=== PATIENT | female | born 1935 | race Two or more races ===

== ENCOUNTER 2019-11-19 06:27 | Emergency (ER) | payer MEDICARE, OTHER ==
[~2019-11-19] VITALS: Ht 152.4 cm; Wt 65.0 kg
[2019-11-19 06:27] VITALS: BP 110/72
[~2019-11-19 06:27] MED LIST: ACET325T9 PO; ALBU2.5V5 NEB; ALBU2.5V8 IH; AMLO5TAB10 PO; ATOR10TA60 PO; CARB15DR65 OU; CARV25TA2 PO; CARV3.1230 PO; CELE200C PO; CHLO15MO2 PO; CLON0.5T PO; CYCL1DRO OU; CYCL5TAB PO; DIVA125C2 PO; DOCU-109 PO; ESOM40CA PO; ESTR0.3T PO; FLUT16SP2 NS; FLUV100T2 PO; FLUV150C PO; FLUV50TA2 PO; GUAI-297 PO; HYDR-2765 PO; IBUP200T58 PO; INSU100I17 SQ; IPRA3AMP29 NEB; LATA2.5D2 OU; LEVO75TA5 PO; LIDO700A4 TP; LORA10TA68 PO; LUTE20TA PO; MAG355OR12 PO; MAGN24003 PO; MAGN400O7 PO; MAGN400T5 PO; MEMA10TA PO; MEMA28CA PO; METF500T16 PO; METH29OI TP; MIRA50TA PO; MIRT15TA PO; MIRT7.5T8 PO; MULT-503 PO; MULT-658 PO; OLAN2.5T11 PO; OMEG1CAP32 PO; ONDA-84 PO; OXYC10TA PO; OXYC5TAB4 PO; PANT40TA5 PO; POLY1DRO3 OU; POTA20TA4 PO; PRED-220 PO; PRED5TAB PO; PROP10DR3 OU; QUET100T4 PO; QUET25TA5 PO; REPA0.5T5 PO; RISP0.2519 PO; SODI56GE DT; SODI56GE MM; SUCR1TAB PO; SULF1TAB24 PO; TRAV5DRO OU; TRAZ-120 PO; VENL75TA PO; VIT1CAPS10 PO; VIT1TABL8 PO; mylanta
--- NOTE | 2019-11-19 06:57 | EKG ---
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
--- NOTE | 2019-11-19 07:24 | PHYS DOC ---
Past History Past Medical History: Arthritis, Constipation, Depression, Diabetes, GERD, Hypertension, Other Past Surgical History: Cholecystectomy, , Hysterectomy, Tonsillectomy, Other Smoking: Non-smoker Alcohol Use: None Drug Use: None General Adult EDM: Chief Complaint: MECHANICAL FALL HPI: HPI: Patient is a 84-year-old female who was brought here by EMS from her retirement for evaluation after she passed out while sitting on the toilet. It was reported that patient might have hit her head,, had a seizure, patient has history of seizure disorder on Depakote. EMS were called to take her here for evaluation because patient was acting confused. Upon arrival to ER, patient was awake and alert, she denies any headache, no chest pain, no neck pain, no abdominal pain, no nausea vomiting. The patient denies any cough or fever. There is no report of COVID-19 exposure. Patient was able to ambulate without any problem. Review of Systems: Review of Systems: Constitutional: Denies fever or chills Eyes: Denies change in visual acuity HENT: Denies nasal congestion or sore throat Respiratory: Denies cough or shortness of breath Cardiovascular: Denies chest pain or edema GI: Denies abdominal pain, nausea, vomiting, bloody stools or diarrhea : Denies dysuria Musculoskeletal: Denies back pain or joint pain Integument: Denies rash Neurologic: Denies headache, focal weakness or sensory changes . Positive for generalized weakness Endocrine: Denies polyuria or polydipsia Lymphatic: Denies swollen glands Psychiatric: Denies depression or anxiety Heart Score: Risk Factors: Risk Factors: DM, Current or recent (<one month) smoker, HTN, HLP, family history of CAD, obesity. Risk Scores: Score 0 - 3: 2.5% MACE over next 6 weeks - Discharge Home Score 4 - 6: 20.3% MACE over next 6 weeks - Admit for Clinical Observation Score 7 - 10: 72.7% MACE over next 6 weeks - Early Invasive Strategies Allergies: Allergies: Allergies Coded Allergies Type Severity Reaction Last Updated Verified No Known Drug Allergies 06/24/13 No Physical Exam: PE: Constitutional: Well developed, well nourished, no acute distress, non-toxic appearance. [] HENT: Normocephalic, atraumatic, bilateral external ears normal, oropharynx moist, no oral exudates, nose normal. Facial bones intact, nontender to palpation, no contusion on her head. Eyes: PERRLA, EOMI, conjunctiva normal, no discharge. [] Neck: Normal range of motion, no tenderness, supple, no stridor. [] Cardiovascular:Heart rate regular rhythm, no murmur [] Lungs & Thorax: Bilateral breath sounds clear to auscultation [] Abdomen: Bowel sounds normal, soft, no tenderness, no masses, no pulsatile masses. [] Skin: Warm, dry, no erythema, no rash. [] Back: No tenderness, no CVA tenderness. There is no contusion Extremities: No tenderness, no cyanosis, no clubbing, ROM intact, no edema. No contusion, no pain to palpation along her extremity, no pelvic tenderness to palpation, no hip ,pelvic tender to palpation Neurologic: Alert, oriented to person, normal motor function, normal sensory function, no focal deficits noted. Psychologic: Affect normal, judgement normal, mood normal. [] Current Patient Data: Labs: Laboratory Tests Test 11/19/19 07:33 White Blood Count 11.3 x10^3/uL Red Blood Count 4.67 x10^6/uL Hemoglobin 14.8 g/dL Hematocrit 45.0 % Mean Corpuscular Volume 96 fL Mean Corpuscular Hemoglobin 32 pg Mean Corpuscular Hemoglobin Concent 33 g/dL Red Cell Distribution Width 14.3 % Platelet Count 222 x10^3/uL Neutrophils (%) (Auto) 55 % Lymphocytes (%) (Auto) 32 % Monocytes (%) (Auto) 12 % Eosinophils (%) (Auto) 1 % Basophils (%) (Auto) 1 % Neutrophils # (Auto) 6.2 x10^3uL Lymphocytes # (Auto) 3.6 x10^3/uL Monocytes # (Auto) 1.3 x10^3/uL Eosinophils # (Auto) 0.1 x10^3/uL Basophils # (Auto) 0.1 x10^3/uL Sodium Level 142 mmol/L Potassium Level 3.9 mmol/L Chloride Level 104 mmol/L Carbon Dioxide Level 28 mmol/L Anion Gap 10 Blood Urea Nitrogen 26 mg/dL Creatinine 1.6 mg/dL Estimated GFR (Cockcroft-Gault) 30.9 BUN/Creatinine Ratio 16 Glucose Level 165 mg/dL Calcium Level 9.0 mg/dL Magnesium Level 1.7 mg/dL Total Bilirubin 0.3 mg/dL Aspartate Amino Transf (AST/SGOT) 16 U/L Alanine Aminotransferase (ALT/SGPT) 18 U/L Alkaline Phosphatase 74 U/L Troponin I Quantitative < 0.017 ng/mL Total Protein 7.0 g/dL Albumin 2.9 g/dL Albumin/Globulin Ratio 0.7 Valproic Acid (Depakene) Level mcg/mL Valproic Acid Last Dose Date 11/18/19 Valproic Acid Last Dose Time 1900 Current Medications Medications (Trade) Dose Ordered Sig/Carter Route PRN Reason Start Time Stop Time Status Last Admin Dose Admin Sodium Chloride 500 ml @ 0 mls/hr 1X ONCE IV 11/19/19 08:45 11/19/19 08:46 DC 11/19/19 08:43 Vital Signs: Vital Signs Date Time Temp Pulse Resp B/P (MAP) Pulse Ox O2 Delivery O2 Flow Rate FiO2 11/19/19 06:27 97.9 84 18 110/72 (85) 97 Room Air EKG: EKG: EKG was done at 651, heart rate 82 bpm, normal sinus rhythm, no ST segment elevation. [] Radiology/Procedures: Radiology/Procedures: [][place] [id number] IMAGING REPORT Signed PATIENT: SKINNY JOACCOUNT: [id number] : 1935 LOCATION: ER AGE: 84 SEX: F EXAM STATUS: REG ER ORD. PHYSICIAN: ELLIOT BOYD DO REASON: HAD A SYNCOPE,PASSED OUT,ACTING CONFUSED,ABSCESSED TOOTH ON RT PROCEDURE: CT HEAD AND CERVICAL SPINE WO CT HEAD AND CERVICAL SPINE WO Clinical indications: Reason: HAD A SYNCOPE,PASSED OUT,ACTING CONFUSED,ABSCESSED TOOTH ON RT NONCONTRAST HEAD CT COMPARISON: June 30, 2013. Technique: Noncontrast axial cross sectional scanning of the head was performed. PQRS compliance Statement One or more of the following individualized dose reduction techniques were utilized for this study: 1. Automated exposure control 2. Adjustment of the mA and/or kV according to patient size 3. Use of iterative reconstruction technique Findings: No acute intracranial hemorrhage or midline shift or mass-effect or hydrocephalus or extra-axial fluid collection is seen. 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 Bilateral periventricular white matter hypodensity seen consistent chronic small vessel ischemic disease in this age group. No now focal hypodense area or sulci effacement is seen to indicate an acute infarct or edema radiographically. Generalized cerebral atrophy is seen. No skull fracture or pneumocephalus is seen. There is a moderate-sized air-fluid level within the right sphenoid sinus. The maxillary sinuses are not completely seen in this study. IMPRESSION: No acute intracranial abnormality is seen. Moderate-sized air-fluid level within the right sphenoid sinus. No skull fracture is evident. No pneumocephalus is seen. Therefore, this finding may be secondary to acute sinusitis. CT STUDY CERVICAL SPINE WITHOUT CONTRAST TECHNIQUE: Noncontrast helical CT scanning of the cervical spine was performed. Multiplanar 2-D reconstructions were generated. FINDINGS: No acute fracture or discitis or lytic process is seen. There is grade 1 anterolisthesis of C3-4 and C4-5. Degenerative facet arthropathy is evident. No perching of facet joints is evident. Spinous processes are intact. There is degenerative disc space narrowing and endplate spurring at C4-5 and C5-6. No prevertebral soft tissue swelling is evident. Dental caries is seen involving the upper left tooth and lower right tooth. No periapical lucency or lytic process is seen. No prevertebral soft tissue swelling is evident. Groundglass lung nodule is seen involving the medial aspect left upper lobe measuring 9 mm. IMPRESSION: No acute fracture. Degenerative cervical spondylosis. 9 mm groundglass lung nodule within the left upper lobe. This may be further evaluated with outpatient chest CT. Dental caries. Electronically signed by: Yuliana Johns MD (11/19/2019 7:57 AM) [id number] DICTATED AND SIGNED BY: YULIANA JOHNS MD DATE: 11/19/19 0754 CC: ELLIOT BOYD DO; IKER GARCIA ~ [address] [address] IMAGING REPORT Signed PATIENT: SKNINY JOACCOUNT: [id number] : 1935 LOCATION: ER AGE: 84 SEX: F EXAM STATUS: REG ER ORD. PHYSICIAN: ELLIOT BOYD DO REASON: FELL, BACK PAIN PROCEDURE: LUMBAR SPINE 2-3V Three-view study lumbar spine Clinical indications: Fall. Back pain. FINDINGS: Levoscoliosis is seen. The transverse processes appear intact. No acute compression fracture is evident. No discitis or lytic process or anterolisthesis is evident. Degenerative disc space narrowing and endplate spurring is seen from L2-3 through L4-5. IMPRESSION: No acute fracture is evident. Electronically signed by: Yuliana Johns MD (11/19/2019 7:38 AM) [id number] DICTATED AND SIGNED BY: YULIANA JOHNS MD DATE: 11/19/19737 CC: ELLIOT BOYD DO; IKER GARCIA ~ [place] [address] IMAGING REPORT Signed PATIENT: SKINNY JOACCOUNT: [id number] : 1935 LOCATION: ER AGE: 84 SEX: F EXAM STATUS: REG ER ORD. PHYSICIAN: ELLIOT BOYD DO REASON: FELL, BACK PAIN PROCEDURE: PELVIS AP view of the pelvis Clinical indications: Fall. Back pain. FINDINGS: The hip joints are symmetric. No acute fracture is seen. No diastases of the symphysis pubis or either SI joint is seen. IMPRESSION: No acute fracture. Electronically signed by: Yuliana Johns MD (11/19/2019 7:39 AM) [id number] DICTATED AND SIGNED BY: YULIANA JOHNS MD DATE: 11/19/19738 CC: ELLIOT BOYD DO; IKER GARCIA ~ Course & Med Decision Making: Course & Med Decision Making Pertinent Labs and Imaging studies reviewed. (See chart for details) Patient is a 84-year-old female who was evaluated in the ER today due to syncopal episode while she was sitting on the toilet consistent with vasovagal response. CT scan of the head and C-spine did not show any acute fracture or bleeding. X-ray of the lumbar spine pelvic did not show any acute fracture. Her lab work did not show any significant problem. She was slightly dehydrated, she was given 500 cc of normal saline IV bolus, her EKG did not show any acute problem. Patient will be discharged back to the retirement. Bassem Disclaimer: Bassem Disclaimer: This electronic medical record was generated, in whole or in part, using a voice recognition dictation system. Departure Departure: Impression: Primary Impression: Syncope Disposition: HOME/RESIDENCE PRIOR TO ADM Condition: STABLE Referrals: IKER GARCIA (PCP) please follow up with your doctor next week Patient Instructions: Syncope Additional Instructions: Thank you for visiting our Emergency Department. We appreciate you trusting us with your care. If any additional problems come up don't hesitate to return to visit us. Please follow up with your primary care provider so they can plan additional care if needed and know about the problem that you had. If symptoms worsen come back to the Emergency Department. Any concerning symptoms that start such as chest pain, shortness of air, weakness or numbness on one side of the body, running high fevers or any other concerning symptoms return to the ER. Justification of Admission: Justification of Admission: Justification of Admission Dx: N/A ELLIOT BOYD DO Nov 19, 2019 07:24
--- NOTE | 2019-11-19 07:41 | RAD ---
Three-view study lumbar spine Clinical indications: Fall. Back pain. FINDINGS: Levoscoliosis is seen. The transverse processes appear intact. No acute compression fracture is evident. No discitis or lytic process or anterolisthesis is evident. Degenerative disc space narrowing and endplate spurring is seen from L2-3 through L4-5. IMPRESSION: No acute fracture is evident. Electronically signed by: Jayesh Johns MD (11/19/2019 7:38 AM) [id number]
--- NOTE | 2019-11-19 07:42 | RAD ---
AP view of the pelvis Clinical indications: Fall. Back pain. FINDINGS: The hip joints are symmetric. No acute fracture is seen. No diastases of the symphysis pubis or either SI joint is seen. IMPRESSION: No acute fracture. Electronically signed by: Jayesh Johns MD (11/19/2019 7:39 AM) [id number]
[2019-11-19 07:49] LABS: BASO # 0.1 x10^3/uL (0.0-0.2); BASO % 1 % (0-3); EOS # 0.1 x10^3/uL (0.0-0.7); EOS % 1 % (0-3); HEMOGLOBIN 14.8 g/dL (12.0-15.5); LYMPH # 3.6 x10^3/uL (1.0-4.8); LYMPH % 32 % (24-48); MEAN CORPUSCULAR HEMOGLOBIN 32 pg (25-35); MEAN CORPUSCULAR HGB CONC 33 g/dL (31-37); MEAN CORPUSCULAR VOLUME 96 fL (79-100); MONO # 1.3 x10^3/uL (0.0-1.1); MONO % 12 % (0-9); NEUT # 6.2 x10^3uL (1.8-7.7); NEUT % 55 % (31-73); PLATELET COUNT 222 x10^3/uL (140-400); RED BLOOD COUNT 4.67 x10^6/uL (3.50-5.40); RED CELL DISTRIBUTION WIDTH 14.3 % (11.5-14.5); WHITE BLOOD COUNT 11.3 x10^3/uL (4.0-11.0)
[2019-11-19 07:58] LABS: ANION GAP 10 (6-14); BLOOD UREA NITROGEN 26 mg/dL (7-20); BUN/CREATININE RATIO 16 (6-20); CARBON DIOXIDE 28 mmol/L (21-32); CHLORIDE 104 mmol/L (98-107); CREATININE 1.6 mg/dL (0.6-1.0); GFR 30.9; GLUCOSE 165 mg/dL (70-99); POTASSIUM 3.9 mmol/L (3.5-5.1); SODIUM 142 mmol/L (136-145)
[2019-11-19 08:00] LABS: ALBUMIN 2.9 g/dL (3.4-5.0); MAGNESIUM 1.7 mg/dL (1.8-2.4)
--- NOTE | 2019-11-19 08:00 | RAD ---
CT HEAD AND CERVICAL SPINE WO Clinical indications: Reason: HAD A SYNCOPE,PASSED OUT,ACTING CONFUSED,ABSCESSED TOOTH ON RT NONCONTRAST HEAD CT COMPARISON: June 30, 2013. Technique: Noncontrast axial cross sectional scanning of the head was performed. PQRS compliance Statement One or more of the following individualized dose reduction techniques were utilized for this study: 1. Automated exposure control 2. Adjustment of the mA and/or kV according to patient size 3. Use of iterative reconstruction technique Findings: No acute intracranial hemorrhage or midline shift or mass-effect or hydrocephalus or extra-axial fluid collection is seen. 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 Bilateral periventricular white matter hypodensity seen consistent chronic small vessel ischemic disease in this age group. No now focal hypodense area or sulci effacement is seen to indicate an acute infarct or edema radiographically. Generalized cerebral atrophy is seen. No skull fracture or pneumocephalus is seen. There is a moderate-sized air-fluid level within the right sphenoid sinus. The maxillary sinuses are not completely seen in this study. IMPRESSION: No acute intracranial abnormality is seen. Moderate-sized air-fluid level within the right sphenoid sinus. No skull fracture is evident. No pneumocephalus is seen. Therefore, this finding may be secondary to acute sinusitis. CT STUDY CERVICAL SPINE WITHOUT CONTRAST TECHNIQUE: Noncontrast helical CT scanning of the cervical spine was performed. Multiplanar 2-D reconstructions were generated. FINDINGS: No acute fracture or discitis or lytic process is seen. There is grade 1 anterolisthesis of C3-4 and C4-5. Degenerative facet arthropathy is evident. No perching of facet joints is evident. Spinous processes are intact. There is degenerative disc space narrowing and endplate spurring at C4-5 and C5-6. No prevertebral soft tissue swelling is evident. Dental caries is seen involving the upper left tooth and lower right tooth. No periapical lucency or lytic process is seen. No prevertebral soft tissue swelling is evident. Groundglass lung nodule is seen involving the medial aspect left upper lobe measuring 9 mm. IMPRESSION: No acute fracture. Degenerative cervical spondylosis. 9 mm groundglass lung nodule within the left upper lobe. This may be further evaluated with outpatient chest CT. Dental caries. Electronically signed by: Jayesh Johns MD (11/19/2019 7:57 AM) [id number]
[2019-11-19 08:13] LABS: ALBUMIN/GLOBULIN RATIO 0.7 (1.0-1.7); ALK PHOS 74 U/L (46-116); ALT (SGPT) 18 U/L (14-59); AST (SGOT) 16 U/L (15-37); TOTAL BILIRUBIN 0.3 mg/dL (0.2-1.0)
[2019-11-19] MEDS ORDERED: IV NORMAL SALINE 500ML 500 ML IV ONE (08:45)
== END 2019-11-19 09:42 | disposition home or self-care (01) ==
LOC: ER 06:27
DX: R55 Syncope and collapse (principal); G40.909 Epilepsy, unspecified, not intractable, without status epilepticus; M19.90 Unspecified osteoarthritis, unspecified site; E11.9 Type 2 diabetes mellitus without complications; K21.9 Gastro-esophageal reflux disease without esophagitis; I10 Essential (primary) hypertension
CPT/HCPCS: 36415; 70450; 72100; 72125; 72170; 80053; 80164; 83735; 84484; 85025; 93005; 99285; J7040; 96360

== ENCOUNTER 2021-03-09 18:11 | Emergency (ER) | payer MEDICARE, OTHER ==
[~2021-03-09] VITALS: Ht 162.6 cm; Wt 54.3 kg
[~2021-03-09 18:11] MED LIST changes: +AMLO-186 PO; -AMLO5TAB10 PO; +FLUV100T17 PO; -FLUV100T2 PO; -FLUV50TA2 PO; +FLUV50TA21 PO; +MAGN400T48 PO; -MAGN400T5 PO; +MIRA25TA PO; -MIRA50TA PO; +MIRT-37 PO; -MIRT15TA PO; -PANT40TA5 PO; +PANT40TA6 PO
--- NOTE | 2021-03-09 18:45 | RAD ---
Exam: Chest one view INDICATION: Fall TECHNIQUE: Frontal view of the chest Comparisons: None FINDINGS: The cardiomediastinal silhouette and pulmonary vessels are within normal limits. The lung and pleural spaces are clear. IMPRESSION: No acute cardiopulmonary process. Electronically signed by: Jonathan Marin MD (03/09/2021 6:43 PM) VERENICE
--- NOTE | 2021-03-09 18:55 | EKG ---
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
--- NOTE | 2021-03-09 18:59 | PHYS DOC ---
Past History Additional Past Medical Histor: chronic constipation Past Surgical History: Other General Adult EDM: Chief Complaint: MECHANICAL FALL HPI: HPI: 85-year-old female presents from nursing facility via EMS for fall. The patient was found down on carpeted floor in her room. No witnesses to the fall. Patient was complaining of her legs hurting to staff. When EMS arrived she did not have any specific complaints. The patient has advanced dementia at baseline is only oriented to self. The facility states that she is at her mental baseline. On arrival to the emergency room she has no specific complaints. No reported fever or chills. Review of Systems: Review of Systems: Constitutional: Denies fever or chills HENT: Denies nasal congestion or sore throat Respiratory: Denies cough or shortness of breath Cardiovascular: Denies chest pain or edema GI: Denies abdominal pain, nausea, vomiting, bloody stools or diarrhea : Denies dysuria Musculoskeletal: Denies back pain or joint pain Integument: Denies rash Psychiatric: Denies depression or anxiety Physical Exam: PE: Constitutional: Well developed, well nourished, no acute distress, non-toxic appearance. [] HENT: Normocephalic, atraumatic, bilateral external ears normal, oropharynx moist, no oral exudates, nose normal. [] Eyes: PERRLA, EOMI, conjunctiva normal, no discharge. [] Neck: Normal range of motion, no tenderness, supple, no stridor. [] Cardiovascular: Heart rate 69, regular rhythm, no murmur [] Lungs & Thorax: Bilateral breath sounds clear to auscultation [] Abdomen: Bowel sounds normal, soft, no tenderness, no masses, no pulsatile masses. [] Skin: Warm, dry, no erythema, no rash. [] Back: No tenderness, no CVA tenderness. [] Extremities: No tenderness, no cyanosis, no clubbing, ROM intact, no edema. [] Neurologic: Alert and oriented X 3, normal motor function, normal sensory function, no focal deficits noted. [] Psychologic: Affect normal, judgement normal, mood normal. [] Current Patient Data: Vital Signs: Vital Signs Date Time Temp Pulse Resp B/P (MAP) Pulse Ox O2 Delivery O2 Flow Rate FiO2 03/09/21 18:15 97.9 67 18 136/58 (84) 96 Room Air EKG: EKG: Sinus rhythm, rate 69, leftward axis, no ST elevation or depression. [] Radiology/Procedures: Radiology/Procedures: [] Impressions: Exam: Chest one view INDICATION: Fall TECHNIQUE: Frontal view of the chest Comparisons: None FINDINGS: The cardiomediastinal silhouette and pulmonary vessels are within normal limits. The lung and pleural spaces are clear. IMPRESSION: No acute cardiopulmonary process. Electronically signed by: Jonathan Lomas MD (03/09/2021 6:43 PM) [facility] DICTATED AND SIGNED BY: JONATHAN LOMAS MD DATE: 03/09/211841 CC: MELISSA CANELA DO; IKER GARCIA ~MTH0 0 EXAM: CT HEAD WITHOUT IV CONTRAST CLINICAL HISTORY: Reason: fall / Spl. Instructions: / History: COMPARISON: None. TECHNIQUE: Routine CT of the head without contrast. Soft tissues and bone windows were reviewed. PQRS compliance statement - One or more of the following individualized dose reduction techniques were utilized for this study: 1. Automated exposure control 2. Adjustment of the mA and/or kV according to patient size 3. Use of iterative reconstruction technique FINDINGS: There is no evidence of hemorrhage, mass or extra-axial fluid collection. 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 Subcortical, periventricular as well as deep white matter hypoattenuation likely changes of chronic small vessel disease. There is no mass effect or shift of the intracranial structures. There is prominence of the ventricles and sulci bilaterally consistent with generalized cerebral atrophy. The cerebellum and brainstem are unremarkable. The calvarium demonstrates no evidence of fracture or focal lesion. Opacification sphenoid sinus likely sinusitis. The visualized portions of the orbits are normal. IMPRESSION: 1. No evidence for acute intracranial process. 2. White matter changes likely chronic small vessel disease. 3. There is prominence of the ventricles and sulci bilaterally consistent with generalized cerebral atrophy. 4. 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 EXAM: CT CERVICAL SPINE WITHOUT IV CONTRAST CLINICAL HISTORY: Reason: fall / Spl. Instructions: / History: COMPARISON: None available. TECHNIQUE: Helical CT of the cervical spine was performed. Axial, coronal and sagittal reformatted images were also performed. PQRS compliance statement - One or more of the following individualized dose reduction techniques were utilized for this study: 1. Automated exposure control 2. Adjustment of the mA and/or kV according to patient size 3. Use of iterative reconstruction technique FINDINGS: Vertebral body heights are preserved. No spondylolisthesis. Mild C4-5 and moderate C5-6 disc height loss. Small posterior C4-5 and C5-6 disc osteophyte complexes result in mild central canal stenosis. IMPRESSION: 1. No acute cervical spine fracture or subluxation. 2. Multilevel degenerative changes of the cervical spine are seen. Electronically signed by: Stephen Hansen MD (03/09/2021 7:39 PM) [facility] DICTATED AND SIGNED BY: STEPHEN HANSEN MD DATE: 03/09/211930 CC: MELISSA CANELA DO; IKER GARCIA ~MTH0 0 Heart Score: C/O Chest Pain: N/A Risk Factors: Risk Factors: DM, Current or recent (<one month) smoker, HTN, HLP, family history of CAD, obesity. Risk Scores: Score 0 - 3: 2.5% MACE over next 6 weeks - Discharge Home Score 4 - 6: 20.3% MACE over next 6 weeks - Admit for Clinical Observation Score 7 - 10: 72.7% MACE over next 6 weeks - Early Invasive Strategies Course & Med Decision Making: Course & Med Decision Making Pertinent Labs and Imaging studies reviewed. (See chart for details) The patient did not complain of any areas of pain to me. My exam was essentially benign. Given her dementia, I will CT the head neck. I do not see evidence of necessary imaging for other parts of the body. EKG is negative for acute findings. Patient's chest x-ray is negative for acute findings. The the patient's labs are unremarkable. Patient's CT of the head and cervical spine are negative for acute findings. There are chronic findings. See official read for more details. The patient does not appear to have any acute injuries. She is stable for discharge at this time. [] Dragon Disclaimer: Dragon Disclaimer: This electronic medical record was generated, in whole or in part, using a voice recognition dictation system. Departure Departure: Impression: Primary Impression: Fall Disposition: HOME / SELF CARE / HOMELESS Condition: STABLE Referrals: IKER GARCIA (PCP) Patient Instructions: Fall Prevention and Home Safety, [id number] MELISSA CANELA DO Mar 09, 2021 18:59
[2021-03-09 19:26] LABS: BASO # 0.1 x10^3/uL (0.0-0.2); BASO % 1 % (0-3); EOS # 0.1 x10^3/uL (0.0-0.7); EOS % 1 % (0-3); HEMATOCRIT 44.1 % (36.0-47.0); HEMOGLOBIN 14.5 g/dL (12.0-15.5); LYMPH # 3.2 x10^3/uL (1.0-4.8); LYMPH % 30 % (24-48); MEAN CORPUSCULAR HEMOGLOBIN 32 pg (25-35); MEAN CORPUSCULAR HGB CONC 33 g/dL (31-37); MEAN CORPUSCULAR VOLUME 97 fL (79-100); MONO # 1.1 x10^3/uL (0.0-1.1); MONO % 10 % (0-9); NEUT # 6.4 x10^3uL (1.8-7.7); NEUT % 59 % (31-73); PLATELET COUNT 210 x10^3/uL (140-400); RED BLOOD COUNT 4.53 x10^6/uL (3.50-5.40); RED CELL DISTRIBUTION WIDTH 14.5 % (11.5-14.5); WHITE BLOOD COUNT 10.9 x10^3/uL (4.0-11.0)
--- NOTE | 2021-03-09 19:41 | RAD ---
EXAM: CT HEAD WITHOUT IV CONTRAST CLINICAL HISTORY: Reason: fall / Spl. Instructions: / History: COMPARISON: None. TECHNIQUE: Routine CT of the head without contrast. Soft tissues and bone windows were reviewed. PQRS compliance statement - One or more of the following individualized dose reduction techniques wer e utilized for this study: 1. Automated exposure control 2. Adjustment of the mA and/or kV according to patient size 3. Use of iterative reconstruction technique FINDINGS: There is no evidence of hemorrhage, mass or extra-axial fluid collection. 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 Subcortical, periventricular as well as deep white matter hypoattenuation likely changes of chronic small vessel disease. There is no mass effect or shift of the intracranial structures. There is prominence of the ventricles and sulci bilaterally consistent with generalized cerebral atro phy. The cerebellum and brainstem are unremarkable. The calvarium demonstrates no evidence of fracture or focal lesion. Opacification sphenoid sinus likely sinusitis. The visualized portions of the orbits are normal. IMPRESSION: 1. No evidence for acute intracranial process. 2. White matter changes likely chronic small vessel disease. 3. There is prominence of the ventricles and sulci bilaterally consistent with generalized cerebral atrophy. 4. 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 EXAM: CT CERVICAL SPINE WITHOUT IV CONTRAST CLINICAL HISTORY: Reason: fall / Spl. Instructions: / History: COMPARISON: None available. TECHNIQUE: Helical CT of the cervical spine was performed. Axial, coronal and sagittal reformatted im ages were also performed. PQRS compliance statement - One or more of the following individualized dose reduction techniques wer e utilized for this study: 1. Automated exposure control 2. Adjustment of the mA and/or kV according to patient size 3. Use of iterative reconstruction technique FINDINGS: Vertebral body heights are preserved. No spondylolisthesis. Mild C4-5 and moderate C5-6 disc height loss. Small posterior C4-5 and C5-6 disc osteophyte complexes result in mild central canal stenosis. IMPRESSION: 1. No acute cervical spine fracture or subluxation. 2. Multilevel degenerative changes of the cervical spine are seen. Electronically signed by: Stephen Chang MD (03/09/2021 7:39 PM) [email or web address]
[2021-03-09 19:44] LABS: BILIRUBIN,URINE SMALL (NEG); CLARITY,URINE CLOUDY; COLOR,URINE YELLOW; GLUCOSE,URINE NEG (NEG)
[2021-03-09 19:45] LABS: BACTERIA,URINE MANY /HPF (0-FEW); HYALINE CASTS, URINE FEW /HPF; NITRITE,URINE NEG (NEG); SQUAMOUS EPITHELIAL CELL,UR MOD /LPF
[2021-03-09 19:51] LABS: CALCIUM 9.2 mg/dL (8.5-10.1); CREATININE 1.1 mg/dL (0.6-1.0); GFR 47.4
[2021-03-09 20:05] LABS: ALBUMIN/GLOBULIN RATIO 0.8 (1.0-1.7); TOTAL BILIRUBIN 0.4 mg/dL (0.2-1.0)
[2021-03-09 21:15] VITALS: BP 144/76
== END 2021-03-09 22:59 | disposition home or self-care (01) ==
LOC: MERGE 18:11 → ER 18:11
DX: G93.89 Other specified disorders of brain (principal)
CPT/HCPCS: 36415; 70450; 71045; 72125; 80053; 81001; 84484; 85025; 87086; 93005; 99285-25

== ENCOUNTER 2021-03-14 11:29 | Emergency (ER) | payer OTHER ==
[~2021-03-14] VITALS: Ht 154.9 cm; Wt 63.0 kg
[2021-03-14 11:35] VITALS: BP 115/58
--- NOTE | 2021-03-14 12:06 | PHYS DOC ---
Past History Past Medical History: Arthritis, Constipation, Depression, Diabetes, GERD, Hypertension, Other Additional Past Medical Histor: chronic constipation Past Surgical History: No Surgical History Smoking: Non-smoker Alcohol Use: None Drug Use: None General Adult EDM: Chief Complaint: FACE PROBLEM HPI: HPI: 85-year-old female presents with left-sided facial mass. Patient steerable cheek just below her ear couple of days ago. It was thought this could be cellulitis so she was started on clindamycin. She is taking this for at least 2 days and the mass is now more firm, larger, and appears to be more superior. The patient generally has not felt very well so her care facility decided she should be evaluated. No recorded fever. The patient has dementia at baseline, but is alert to self and situation. Review of Systems: Review of Systems: Constitutional: Denies fever or chills Eyes: Denies change in visual acuity HENT: left sided facial mass Respiratory: Denies cough or shortness of breath Cardiovascular: Denies chest pain or edema GI: Denies abdominal pain, nausea, vomiting, bloody stools or diarrhea : Denies dysuria Musculoskeletal: Denies back pain or joint pain Integument: Denies rash Neurologic: Denies headache, focal weakness or sensory changes Endocrine: Denies polyuria or polydipsia Lymphatic: Denies swollen glands Psychiatric: Denies depression or anxiety Allergies: Allergies: Allergies Coded Allergies Type Severity Reaction Last Updated Verified No Known Drug Allergies 06/24/13 No Physical Exam: PE: Constitutional: Well developed, well nourished, no acute distress, non-toxic appearance. [] HENT: Normocephalic, atraumatic, bilateral external ears normal, oropharynx moist, no oral exudates, nose normal. [] Eyes: PERRLA, EOMI, conjunctiva normal, no discharge. [] Neck: 2 cm mass of the left face at the base of the ear, 1 cm firm, palpable center; tenderness to palpation. No overlying erythema or obvious cellulitis. [] Cardiovascular: Heart rate regular rhythm, no murmur [] Lungs & Thorax: Bilateral breath sounds clear to auscultation [] Abdomen: Bowel sounds normal, soft, no tenderness, no masses, no pulsatile masses. [] Skin: Warm, dry, no erythema, no rash. [] Back: No tenderness, no CVA tenderness. [] Extremities: No tenderness, no cyanosis, no clubbing, ROM intact, no edema. [] Neurologic: Alert and oriented X 3, normal motor function, normal sensory function, no focal deficits noted. [] Psychologic: Affect normal, judgement normal, mood normal. [] Current Patient Data: Vital Signs: Vital Signs Date Time Temp Pulse Resp B/P (MAP) Pulse Ox O2 Delivery O2 Flow Rate FiO2 03/14/21 11:35 97.8 69 16 115/58 (77) 93 Room Air EKG: EKG: [] Radiology/Procedures: Radiology/Procedures: [] Heart Score: C/O Chest Pain: N/A Risk Factors: Risk Factors: DM, Current or recent (<one month) smoker, HTN, HLP, family histo ry of CAD, obesity. Risk Scores: Score 0 - 3: 2.5% MACE over next 6 weeks - Discharge Home Score 4 - 6: 20.3% MACE over next 6 weeks - Admit for Clinical Observation Score 7 - 10: 72.7% MACE over next 6 weeks - Early Invasive Strategies Course & Med Decision Making: Course & Med Decision Making Pertinent Labs and Imaging studies reviewed. (See chart for details) The patient's labs are unremarkable. Her CT scan shows sialoadenitis. She is already on antibiotics so I am not concerned with infection. I will recommend she continue the antibiotic but also other treatment such as warm compresses, massage, and possible sour candies. She is stable for discharge at this time. [] Dragon Disclaimer: Dragon Disclaimer: This electronic medical record was generated, in whole or in part, using a voice recognition dictation system. Departure Departure: Impression: Primary Impression: Sialoadenitis Disposition: HOME / SELF CARE / HOMELESS Condition: STABLE Referrals: IKER GARCIA (PCP) Patient Instructions: Sialadenitis, Extended Version MELISSA CANELA DO Mar 14, 2021 12:06
[2021-03-14] MEDS ORDERED: IOHEXOL 300 MG/ML 75 ML VIAL. IV ONE (12:15)
[2021-03-14] MEDS ORDERED: CONTRAST GIVEN. MC PRN (12:15)
[2021-03-14 12:45] LABS: BASO % 1 % (0-3); EOS # 0.1 x10^3/uL (0.0-0.7); EOS % 1 % (0-3); HEMATOCRIT 39.8 % (36.0-47.0); HEMOGLOBIN 13.2 g/dL (12.0-15.5); LYMPH # 2.3 x10^3/uL (1.0-4.8); LYMPH % 25 % (24-48); MEAN CORPUSCULAR HEMOGLOBIN 32 pg (25-35); MEAN CORPUSCULAR HGB CONC 33 g/dL (31-37); MEAN CORPUSCULAR VOLUME 97 fL (79-100); MONO % 11 % (0-9); NEUT # 5.9 x10^3uL (1.8-7.7); NEUT % 63 % (31-73); PLATELET COUNT 231 x10^3/uL (140-400); RED CELL DISTRIBUTION WIDTH 14.5 % (11.5-14.5); WHITE BLOOD COUNT 9.4 x10^3/uL (4.0-11.0)
[2021-03-14 12:49] LABS: CALCIUM 9.5 mg/dL (8.5-10.1); CREATININE 1.1 mg/dL (0.6-1.0); GFR 47.4; POTASSIUM 4.4 mmol/L (3.5-5.1)
[2021-03-14 12:56] LABS: ALBUMIN 2.5 g/dL (3.4-5.0); ALBUMIN/GLOBULIN RATIO 0.6 (1.0-1.7); TOTAL BILIRUBIN 0.3 mg/dL (0.2-1.0); TOTAL PROTEIN 6.9 g/dL (6.4-8.2)
--- NOTE | 2021-03-14 13:28 | RAD ---
Clinical indications:Mass below the left ear which has gotten larger over the past 5 days. Technique: After IV infusion of 60 ml of Omnipaque 300, helical CT scanning of the soft tissues of th e neck was performed from the base of the skull down through the lung apices. Axial and coronal recon structions were generated and reviewed on a computer monitor. PQRS compliance Statement One or more of the following individualized dose reduction techniques were utilized for this study: 1. Automated exposure control 2. Adjustment of the mA and/or kV according to patient size 3. Use of iterative reconstruction technique COMPARISON: None available. Findings: No enlarged cervical lymphadenopathy is seen. There is increased density of the left parotid gland in comparison to the right side. This may be see n with sialoadenitis. No discrete mass is seen within the left parotid gland otherwise. The submandib ular salivary glands are unremarkable. Left lobe of the thyroid gland is not apparent. Right lobe is homogeneous without mass. No soft tissue thickening of the nasopharynx or adenoids is seen. No parapharyngeal or submucosal soft tissue thickening is seen. No prevertebral soft tissue thickening or abscess is seen. No soft tissue abscess is seen.No soft tissue inflammation is seen. The true and false focal cords appear normal. The epiglottis and aryepiglottic folds and preepiglottic fat space appear normal. No infiltrate is seen within the lung apex on either side. No osteolytic process is seen.. There is complete opacification of both sphenoid sinuses and opacific ation of the posterior left ethmoid sinus. Impression: Bilateral sphenoid and posterior left ethmoid sinusitis. Asymmetric increased density of the left parotid gland in comparison to the right parotid gland which may be seen with sialoadenitis. Electronically signed by: Jayesh Johns MD (03/14/2021 1:26 PM) [place] [id number]
== END 2021-03-14 13:56 | disposition home or self-care (01) ==
LOC: ER 11:29
DX: K11.20 Sialoadenitis, unspecified (principal); M19.90 Unspecified osteoarthritis, unspecified site; F32.9 Major depressive disorder, single episode, unspecified; E11.9 Type 2 diabetes mellitus without complications; K21.9 Gastro-esophageal reflux disease without esophagitis; I10 Essential (primary) hypertension; F03.90 Unspecified dementia, unspecified severity, without behavioral disturbance, psychotic disturbance, mood disturbance, and anxiety
CPT/HCPCS: 36415; 70491; 80053; 85025; 99285; Q9967

== ENCOUNTER 2021-03-20 09:31 | Emergency (ER) | payer OTHER ==
[~2021-03-20] VITALS: Ht 152.4 cm; Wt 54.4 kg
[2021-03-20] MEDS ORDERED: IV NORMAL SALINE 1,000ML 1,000 ML IV ONE (10:00)
[2021-03-20] MEDS ORDERED: ONDANSETRON PF 4 MG/2 ML VIAL. IVP ONE (10:00)
--- NOTE | 2021-03-20 10:14 | RAD ---
EXAM: Chest, single view. HISTORY: Near syncope. COMPARISON: None. FINDINGS: A frontal view of the chest is obtained. There is no infiltrate, pleural effusion or pneumo thorax. The heart is normal in size. IMPRESSION: No acute pulmonary finding. Electronically signed by: Sana Esparza MD (03/20/2021 10:12 AM) [id number]
--- NOTE | 2021-03-20 10:31 | EKG ---
[address] [address] Test Date: 2021-03-20 Test Time: 10:18:52 Pat Name: SKINNY JO Department: Room: Gender: F Door Maker: FUAD : 1935 Requested By: DIANA HENRY Order Number: [id number] Reading MD: Mingo Phillips Measurements Intervals [place] Rate: 76 P: 90 MA: 200 QRS: -23 QRSD: 78 T: 33 QT: 380 QTc: 427 Interpretive Statements SINUS RHYTHM LEFTWARD AXIS QRS(T) CONTOUR ABNORMALITY CONSISTENT WITH INFERIOR INFARCT PROBABLY OLD Electronically Signed On 03-21-2021 14:25:27 SENIOR QA AUTOMATION ENGINEER by Mingo Phillips
[2021-03-20 10:34] LABS: BASO # 0.1 x10^3/uL (0.0-0.2); BASO % 1 % (0-3); EOS # 0.3 x10^3/uL (0.0-0.7); EOS % 3 % (0-3); HEMATOCRIT 43.1 % (36.0-47.0); HEMOGLOBIN 13.9 g/dL (12.0-15.5); LYMPH # 3.9 x10^3/uL (1.0-4.8); LYMPH % 38 % (24-48); MEAN CORPUSCULAR HEMOGLOBIN 32 pg (25-35); MEAN CORPUSCULAR HGB CONC 32 g/dL (31-37); MEAN CORPUSCULAR VOLUME 99 fL (79-100); MONO # 1.2 x10^3/uL (0.0-1.1); MONO % 12 % (0-9); NEUT # 4.6 x10^3uL (1.8-7.7); NEUT % 46 % (31-73); PLATELET COUNT 261 x10^3/uL (140-400); RED BLOOD COUNT 4.37 x10^6/uL (3.50-5.40); RED CELL DISTRIBUTION WIDTH 14.7 % (11.5-14.5); WHITE BLOOD COUNT 10.1 x10^3/uL (4.0-11.0)
--- NOTE | 2021-03-20 10:45 | PHYS DOC ---
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 [employer]ice reports nursing staff told them patient had a period of nausea with vomiting x1, [facility] staff was concerned she may have had a near syncopal episode however this was not witnessed. Limited HPI related to patient's history of dementia with psychosis and major depressive disorder, anxiety disorder, patient is alert however not oriented. Patient denies complaints of pain, nausea, vomiting, diarrhea, denies chest pains, denies shortness of breath. Patient denies urinary problems. Patient's diagnosis from [facility] facesheet includes chronic urinary tract contractions, anemia, hypothyroidism, type 2 diabetes, vitamin deficiencies, hyperlipidemia, dementia, psychosis, major depressive disorder, anxiety disorder, insomnia, dry eye syndrome, macular degeneration, hypertension, allergic rhinitis, COPD, gingivitis, gastric esophageal reflux disease, constipation, shoulder pain, polymyalgia rheumatica, muscle weakness, fibromyalgia, overactive bladder, chronic shortness of breath, difficulty walking, restlessness and agitation. (DIANA HENRY APRN) Review of Systems Review of Systems Limited HPI related to patient's history of dementia. (DIANA HENRY APRN) Current Medications Current Medications Reported medication list from [facility] MAR: Ensure, Boswell tablet 5/325 mg daily, 5 mg amlodipine daily, nystatin powder twice daily, Ocuvite multivitamin daily, potassium chloride ER 20 mg daily, prednisone 1 mg tablet 3 3 times daily, 20 mg Prilosec daily, cyclosporine 0.05% 1 drop both eyes twice daily, Trulicity, vitamin D capsule, Zilactin eyedrops, 75 mcg levothyroxine daily, lidocaine patch every morning, MiraLAX daily, mirtazapine 7.5 mg daily, my Betrix 50 mg daily, Namenda Exar 28 mg daily, 325 mg acetaminophen 2 tablets every 6 hours, Maalox daily, atorvastatin 10 mg daily, Colace 100 mg daily. Carvedilol 6.25 mg twice daily, 125 mg Depakote twice daily, albuterol inhaler every 6 hours. Current Medications Medications (Trade) Dose Ordered Sig/Carter Start Time Stop Time Status Last Admin Dose Admin Ondansetron HCl (Zofran) 4 mg 1X ONCE 03/20/21 10:00 03/20/21 10:15 DC Sodium Chloride 1,000 ml @ 1,000 mls/hr 1X ONCE 03/20/21 10:00 03/20/21 10:59 (DIANA HENRY APRN) Allergies Allergies Allergies Coded Allergies Type Severity Reaction Last Updated Verified No Known Drug Allergies 06/24/13 No (DIANA HENRY APRN) Physical Exam Physical Exam Constitutional: Well developed, well nourished, no acute distress, non-toxic appearance. 85-year-old female in no apparent distress. HENT: Normocephalic, atraumatic. Eyes: Conjunctiva normal, no discharge. Neck: Normal range of motion, no stridor. Cardiovascular: No cyanosis appreciated, distal cap refill less than 2 seconds. Lungs & Thorax: Patient is in no respiratory distress, no audible adventitious lung sounds appreciated. Abdomen: Nontender, no abnormalities noted. Skin: Warm, dry, no erythema, no rash. Back: No tenderness, no deformities. Extremities: No tenderness, no cyanosis, no clubbing, ROM intact, no edema. Neurologic: Alert and oriented X 3, normal motor function, normal sensory function, no focal deficits noted. Psychologic: Affect normal, judgement normal, mood normal. (DIANA HENRY APRN) EKG EKG EKG performed at 1018 by ED nursing staff shows a normal sinus rhythm with a leftward axis deviation heart rate 76 bpm, WA interval 0.200, QTc interval 0.47, no acute STEMI, no ACS, no acute ischemia appreciated, EKG interpreted by ED attending physician Dr. Canela. (DIANA HENRY APRN) Radiology/Procedures Radiology/Procedures PATIENT: SKINNY JOACCOUNT: [id number] : 1935 LOCATION: ER AGE: 85 SEX: F EXAM STATUS: REG ER ORD. PHYSICIAN: DIANA HENRY APRN REASON: near syncope PROCEDURE: CHEST AP ONLY EXAM: Chest, single view. HISTORY: Near syncope. COMPARISON: None. FINDINGS: A frontal view of the chest is obtained. There is no infiltrate, pleural effusion or pneumothorax. The heart is normal in size. IMPRESSION: No acute pulmonary finding. Electronically signed by: Sana Esparza MD (03/20/2021 10:12 AM) [id number] (DIANA HENRY APRN) Heart Score C/O Chest Pain: No Risk Factors: Risk Factors: DM, Current or recent (<one month) smoker, HTN, HLP, family history of CAD, obesity. Risk Scores: Risk Factors: DM, Current or recent (<one month) smoker, HTN, HLP, family history of CAD, obesity. (DIANA HENRY APRN) Course & Med Decision Making Course & Med Decision Making Pertinent Labs and Imaging studies reviewed. (See chart for details) 85-year-old female, vital signs reviewed, was sent to the emergency department today [facility] for a possible near syncopal episode unwitnessed. It was reported patient had a episode of vomiting however patient denies nausea or vomiting. Patient does have a history of dementia. Is alert but not oriented to year or place. From reported possible near syncopal episode that is unwitnessed will order EKG, troponin I, CBC, CMP, mag, Phos, urinalysis assay, chest x-ray. Patient's chest x-ray unremarkable, EKG unremarkable, labs unremarkable for infectious process, the patient's urine is not infected. Upon reevaluation of the patient finds the patient in no apparent distress, nontoxic in appearance, continues to deny complaints. Will discharge back to [facility], working diagnosis feared complaint not demonstrated. ED nurse will give ED report to [facility] prior to patient's transfer back. (DIANA HENRY APRN) Dragon Disclaimer Dragon Disclaimer This electronic medical record was generated, in whole or in part, using a voice recognition dictation system. (DIANA HENRY APRN) Attending Co-Sign The patient was seen and interviewed as well as examined at the bedside. The chart was reviewed. The case was discussed. Agree with the plan of care. (MELISSA CANELA DO) Departure Departure: Impression: Primary Impression: Feared condition not demonstrated Disposition: 01 HOME / SELF CARE / HOMELESS Condition: GOOD Referrals: TRAY GUTIÉRREZ MD (PCP) Additional Instructions: You were seen today in the emergency department for a possible near syncopal episode. A chest x-ray did not show any concerning findings, lab work did not show any concerning findings of infection. Your urinalysis did not show any infection. You did not have any vomiting or syncopal episodes or abnormal vital signs during your ER evaluation. Please return to the emergency department for worsening symptoms or other concerns. Thank you for visiting our Emergency Department. It was a pleasure taking care of you today in the emergency department and we appreciate you trusting us with your care. If any additional problems come up don't hesitate to return to visit us. Please follow up with your primary care provider so they can plan additional care if needed and know about the problem that you had. If symptoms worsen come back to the Emergency Department. Any concerning symptoms that start such as chest pain, shortness of air, weakness or numbness on one side of the body, running high fevers or any other concerning symptoms return to the ER. EMERGENCY DEPARTMENT GENERAL DISCHARGE INSTRUCTIONS Thank you for coming to [facility] (ED) today and trusting us with you care. We trust that you had a positivie experience in our Emergency Department. If you wish to speak to the department management, you may call the director at [phone]. YOUR FOLLOW UP INSTRUCTIONS ARE FOLLOWS: 1. Do you have a private Doctor? If you do not have a private doctor, please ask for a resource list of physicians or clinics that may be able to assist you with follow up care. 2. The Emergency Physician has interpreted your x-rays. The X-Ray specialist will also review them. If there is a change in the findings, you will be notified in 48 hours when at all possible. 3. A lab test or culture has been done, your results will be reviewed and you will be notified if you need a change in treatment. ADDITIONAL INSTRUCTIONS AND INFORMATION: 1. Your care today has been supervised by a physician who is specially trained in emergency care. Many problems require more than one evaluation for a complete diagnosis and treatment. We recommend that you schedule your follow up appointment as recommended to ensure complete treatment of you illness or injury. If you are unable to obtain follow up care and continue to have a problem, or if your condition worsens, we recommend that you return to the ED. 2. We are not able to safely determine your condition over the phone nor are we able to give sound medical advice over the phone. For these safety reasons, if you call for medical advice we will ask you to come to the ED for further evaluation. 3. If you have any questions regarding these discharge instructions please call the ED at [phone]. SAFETY INFORMATION: In the interest of safety, wellness, and injury prevention; we encourage you to wear your sealbelt, if you smoke; quite smoking, and we encourage family to use a protective helmet for bicycling and other sporting events that present an increased risk for head injury. IF YOUR SYMPTOMS WORSEN OR NEW SYMPTOMS DEVELOP, OR YOU HAVE CONCERNS ABOUT YOUR CONDITION; OR IF YOUR CONDITION WORSENS WHILE YOU ARE WAITING FOR YOUR FOLLOW UP APPOINTMENT; EITHER CONTACT YOUR PRIMARY CARE DOCTOR, THE PHYSICIAN WHOSE NAME AND NUMBER YOU WERE GIVEN, OR RETURN TO THE ED IMMEDIATELY. DIANA HENRY APRN Mar 20, 2021 10:45 MELISSA CANELA DO Mar 21, 2021 13:38
[2021-03-20 10:47] LABS: CALCIUM 9.1 mg/dL (8.5-10.1); CREATININE 1.2 mg/dL (0.6-1.0); GFR 42.9; POTASSIUM 4.6 mmol/L (3.5-5.1)
[2021-03-20 10:53] LABS: ALBUMIN/GLOBULIN RATIO 0.9 (1.0-1.7); MAGNESIUM 1.3 mg/dL (1.8-2.4); PHOSPHORUS 3.9 mg/dL (2.6-4.7); TOTAL BILIRUBIN 0.3 mg/dL (0.2-1.0); TOTAL PROTEIN 6.5 g/dL (6.4-8.2)
[2021-03-20 11:06] LABS: BACTERIA,URINE 0 /HPF (0-FEW); BILIRUBIN,URINE SMALL (NEG); CLARITY,URINE CLEAR; COLOR,URINE YELLOW; GLUCOSE,URINE NEG (NEG); HYALINE CASTS, URINE FEW /HPF; NITRITE,URINE NEG (NEG); SQUAMOUS EPITHELIAL CELL,UR FEW /LPF; UROBILINOGEN,URINE 0.2 mg/dL (0.2 mg/dL)
[2021-03-20 11:44] VITALS: BP 127/67
[2021-03-20 12:29] LABS: % BANDS 2 % (0-9); % BASOS 1 % (0-3); % EOS 3 % (0-5); % LYMPHS 67 % (24-48); % MONOS 2 % (0-10); % SEGS 25 % (35-66)
[2021-03-20 12:30] LABS: PLT ESTIMATE ADEQUATE (ADEQUATE)
== END 2021-03-20 12:10 | disposition home or self-care (01) ==
LOC: ER 09:31
DX: Z71.1 Person with feared health complaint in whom no diagnosis is made (principal); M19.90 Unspecified osteoarthritis, unspecified site; E11.9 Type 2 diabetes mellitus without complications; K21.9 Gastro-esophageal reflux disease without esophagitis; I10 Essential (primary) hypertension
CPT/HCPCS: 36415; 71045; 80053; 81001; 83735; 84100; 84484; 85007; 85025; 87086; 93005; 96361; 96374; 99285; J2405; J7030

== ENCOUNTER 2021-04-10 19:05 | Emergency (ER) | payer OTHER ==
[~2021-04-10] VITALS: Ht 152.4 cm; Wt 54.4 kg
[2021-04-10 19:20] VITALS: BP 137/95
--- NOTE | 2021-04-10 19:21 | PHYS DOC ---
Past History Past Medical History: Arthritis, Constipation, Depression, Diabetes, GERD, Hypertension, Other Additional Past Medical Histor: chronic constipation (MERLIN RABAGO APRN) Past Surgical History: No Surgical History (MERLIN RABAGO APRN) Smoking: Non-smoker Alcohol Use: None Drug Use: None (MERLIN RABAGO APRN) General Adult EDM: Chief Complaint: MECHANICAL FALL HPI: HPI: Patient is an 86-year-old female who presents to the emergency department via EMS from a residential following a fall. long term staff states that just prior to arrival patient tripped on carpet in a another resident's room and fell. They state that the fall was unwitnessed but they do report that she hit her head, they are unsure if she had any loss of consciousness. There are no obvious signs of injury, no lacerations or ecchymosis. Patient is not on any blood thinners. Patient is alert and oriented x1 at her baseline and is at her baseline mental status today. Patient is not complaining of any pain. (MERLIN RABAGO APRN) Review of Systems: Review of Systems: HENT: See HPI Musculoskeletal: See HPI Integument: See HPI Neurologic: See HPI (MERLIN RABAGO APRN) Allergies: Allergies: Allergies Coded Allergies Type Severity Reaction Last Updated Verified No Known Drug Allergies 06/24/13 No (MERLIN RABAGO APRN) Physical Exam: PE: Constitutional: Well developed, well nourished, no acute distress, non-toxic appearance. [] HENT: Normocephalic, atraumatic, no palpable skull fractures, no lacerations, bilateral external ears normal, oropharynx moist, no oral exudates, nose normal. [] Eyes: PERRL, EOMI, conjunctiva normal, no discharge. [] Neck: Normal range of motion, no bony spinal tenderness, no step-offs or deformities, supple, no stridor. [] Cardiovascular:Heart rate regular rhythm, no murmur [] Lungs & Thorax: Bilateral breath sounds clear to auscultation, no pain with palpation of chest wall [] Abdomen: Bowel sounds normal, soft, no tenderness, no masses, no pulsatile masses. [] Skin: Warm, dry, no erythema, no rash. [] Back: No bony spinal tenderness, normal range of motion Extremities: No tenderness, no cyanosis, no clubbing, ROM intact, no edema, no pain with palpation of pelvis and hips and lower extremities, no obvious deformities, no shortening or rotation of lower extremities.. [] Neurologic: Alert and oriented X 3, normal motor function, normal sensory function, no focal deficits noted. [] Psychologic: Affect normal, judgement normal, mood normal. [] (MERLIN RABAGO APRN) EKG: EKG: [] (MERLIN RABAGO APRN) Radiology/Procedures: Radiology/Procedures: []PROCEDURE: CT HEAD AND CERVICAL SPINE WO STUDY: CT head and cervical spine without contrast INDICATION: Fall. COMPARISON: CT neck 03/14/2021; CT head and cervical spine 11/19/2019 TECHNIQUE: Axial CT imaging through the head and cervical spine without the use of intravenous contrast. Sagittal and coronal reformats were obtained. One or more of the following individualized dose reduction techniques were utilized for this examination: 1. Automated exposure control 2. Adjustment of the mA and/or kV according to patient size 3. Use of iterative reconstruction technique. FINDINGS: CT head: No acute intracranial hemorrhage. Chronic left frontal lobe infarct. Loaiza-white matter differentiation is maintained elsewhere. No localized mass effect or midline shift. Generalized parenchymal volume loss with ex vacuo ventriculomegaly. Intracranial calcific atherosclerosis. I matter findings typically on account of chronic microvascular ischemic change. Completely opacified sphenoid sinus. Partial opacification of ethmoidal air cells. No layering fluid within the visualized maxillary sinuses. Unremarkable mastoid air cells. No depressed calvarial fracture. CT cervical spine: Generalized osteopenia. No acute fracture is apparent. Unchanged cervical spinal alignment to include offset across the left C1-C2 lateral masses. Discogenic arthrosis again greatest at C5-C6. Scattered uncovertebral joint hypertrophy and mild facet arthrosis. Central canal stenosis at C5-C6 but not severe. No soft tissue sequela of trauma seen throughout the neck. Mild carotid calcific atherosclerosis. 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 No apical pneumothorax. IMPRESSION: CT head: 1. No acute intracranial hemorrhage or depressed calvarial fracture. 2. As was also the case on 03/14/2021 CT neck, complete opacification of the sphenoid sinus and partial opacification of the ethmoidal air cells. Correlate for any symptoms of ongoing sinusitis. 3. Additional chronic/senescent changes as outlined in the body of the report. CT cervical spine: 1. Taking into consideration osteopenia, no acute fracture. No traumatic mal alignment. 2. No interval progression of degenerative changes which are collectively greatest at C5-C6. Electronically signed by: JOZEF CHAN MD (04/10/2021 9:02 PM) [facility] DICTATED AND SIGNED BY: JOZEF CHAN MD DATE: 04/10/212054 CC: EMERGENCY,DEPARTMENT; MERLIN RABAGO APRN; TRAY GUTIÉRREZ MD ~MTH0 0 (MERLIN RABAGO APRN) Heart Score: C/O Chest Pain: N/A Risk Factors: Risk Factors: DM, Current or recent (<one month) smoker, HTN, HLP, family history of CAD, obesity. Risk Scores: Score 0 - 3: 2.5% MACE over next 6 weeks - Discharge Home Score 4 - 6: 20.3% MACE over next 6 weeks - Admit for Clinical Observation Score 7 - 10: 72.7% MACE over next 6 weeks - Early Invasive Strategies (MERLIN RABAGO APRN) Course & Med Decision Making: Course & Med Decision Making Pertinent Labs and Imaging studies reviewed. (See chart for details) [] Patient is an 86-year-old female who presents to the emergency department following a fall. Patient has no complaints and she has no obvious injuries, no pain with palpation of joints, there are no lacerations or ecchymosis that is new. CTs performed of head and neck that showed no acute findings. Patient vies to continue taking medications for pain as previously prescribed, she can take Tylenol also. She can also apply ice to any sore areas. Findings communicated with nursing staff from residential. I discussed with patient all findings and diagnostic testing as well as the need to follow-up with PCP for further evaluation and treatment or return to the ER if any new or worsening symptoms. Strict return precautions were also discussed at length. Patient voiced understanding and agreement with the plan. Patient is hemodynamically stable at the time of disposition. (MERLIN RABAGO APRN) Dragon Disclaimer: Dragon Disclaimer: This electronic medical record was generated, in whole or in part, using a voice recognition dictation system. (MERLIN RABAGO APRN) Departure Departure: Impression: Primary Impression: Fall Qualified Codes: W19.XXXA - Unspecified fall, initial encounter Disposition: HOME / SELF CARE / HOMELESS Condition: GOOD Referrals: TRAY GUTIÉRREZ MD (PCP) Patient Instructions: Fall Prevention and Home Safety Additional Instructions: You were seen in the emergency department today following a fall. The scan of your head neck showed no acute findings. You can take Tylenol for any pain and you can also apply ice. Please follow-up with your primary care provider tomorrow regarding your ER visit. Please return to the emergency department if you develop worsening of your pain, confusion, weakness, intractable nausea or vomiting, speech problems, severe headache or any new injuries. MERLIN RABAGO APRN Apr 10, 2021 19:21 VIVIAN SCHULTE MD Apr 11, 2021 08:46
--- NOTE | 2021-04-10 21:04 | RAD ---
STUDY: CT head and cervical spine without contrast INDICATION: Fall. COMPARISON: CT neck 03/14/2021; CT head and cervical spine 11/19/2019 TECHNIQUE: Axial CT imaging through the head and cervical spine without the use of intravenous contra st. Sagittal and coronal reformats were obtained. One or more of the following individualized dose reduction techniques were utilized for this examinat ion: 1. Automated exposure control 2. Adjustment of the mA and/or kV according to patient size 3. Use of iterative reconstruction technique. FINDINGS: CT head: No acute intracranial hemorrhage. Chronic left frontal lobe infarct. Loaiza-white matter differentiatio n is maintained elsewhere. No localized mass effect or midline shift. Generalized parenchymal volume loss with ex vacuo ventriculomegaly. Intracranial calcific atheroscler osis. I matter findings typically on account of chronic microvascular ischemic change. Completely opacified sphenoid sinus. Partial opacification of ethmoidal air cells. No layering fluid within the visualized maxillary sinuses. Unremarkable mastoid air cells. No depressed calvarial fract ure. CT cervical spine: Generalized osteopenia. No acute fracture is apparent. Unchanged cervical spinal alignment to include offset across the left C1-C2 lateral masses. Discogeni c arthrosis again greatest at C5-C6. Scattered uncovertebral joint hypertrophy and mild facet arthros is. Central canal stenosis at C5-C6 but not severe. No soft tissue sequela of trauma seen throughout the neck. Mild carotid calcific atherosclerosis. Ret ropharyngeal course of the right cervical ICA. No apical pneumothorax. IMPRESSION: CT head: 1. No acute intracranial hemorrhage or depressed calvarial fracture. 2. As was also the case on 03/14/2021 CT neck, complete opacification of the sphenoid sinus and parti al opacification of the ethmoidal air cells. Correlate for any symptoms of ongoing sinusitis. 3. Additional chronic/senescent changes as outlined in the body of the report. CT cervical spine: 1. Taking into consideration osteopenia, no acute fracture. No traumatic malalignment. 2. No interval progression of degenerative changes which are collectively greatest at C5-C6. Electronically signed by: JOZEF CHAN MD (04/10/2021 9:02 PM) [facility]
== END 2021-04-10 22:20 | disposition home or self-care (01) ==
LOC: ER 19:05
DX: Z04.3 Encounter for examination and observation following other accident (principal); M19.90 Unspecified osteoarthritis, unspecified site; E11.9 Type 2 diabetes mellitus without complications; K21.9 Gastro-esophageal reflux disease without esophagitis; I10 Essential (primary) hypertension; W01.0XXA Fall on same level from slipping, tripping and stumbling without subsequent striking against object, initial encounter; Y93.89 Activity, other specified; Y92.89 Other specified places as the place of occurrence of the external cause; Y99.8 Other external cause status
CPT/HCPCS: 70450; 72125; 99284

== ENCOUNTER 2021-04-15 10:04 | Emergency (ER) | payer OTHER ==
[~2021-04-15] VITALS: Ht 152.4 cm; Wt 54.4 kg
[2021-04-15] MEDS ORDERED: IV NORMAL SALINE 1,000ML 1,000 ML IV ONE ×2 (10:30)
[2021-04-15] MEDS ORDERED: 0.9 % SODIUM CHLORIDE 10 ML DISP.SYRIN. IV PRN (10:30)
--- NOTE | 2021-04-15 11:06 | PHYS DOC ---
Past History Past Medical History: Arthritis, Constipation, Dementia, Depression, Diabetes, GERD, Hypertension, Other Additional Past Medical Histor: chronic constipation (LEMUEL LEON ASSEMBLY INSPECTOR HELPER) Past Surgical History: Other Additional Past Surgical Histo: UNKNOWN (LEMUEL LEON ASSEM[employer] INSPECTOR HELPER) Smoking: Non-smoker Alcohol Use: None Drug Use: None (LEMUEL LEON [employer]SEMBL[employer] INSPECTOR HELPER) Adult General Chief Complaint Chief Complaint: ALTERED MENTAL STATUS HPI HPI Patient is a 86-year-old female patient with history of diabetes type 2, hypertension, dementia, anxiety, constipation, chronic back pain currently on hospice who presents to the ED today from a retirement. Patient is lethargic and the son is giving us information. Son states patient has had limited to almost no p.o. intake for the last 2 weeks. He states patient has been sleeping more than usual, he states they called him last night and told him patient is responding to pain only and having difficulty breathing. Patient son states patient is on hospice but he would like us to do everything possible to figure out what is wrong with patient and if possible bring her back to her normal self. Son also states patient was given hydrocodone last night. (LEMUEL LEON [employer]SEM[employer] INS[employer] HELPER) Review of Systems Review of Systems Constitutional: Denies fever or chills [] Eyes: Denies change in visual acuity, redness, or eye pain [] HENT: Denies nasal congestion or sore throat [] Respiratory: Denies cough or shortness of breath [] Cardiovascular: No additional information not addressed in HPI [] GI: Denies abdominal pain, nausea, vomiting, bloody stools or diarrhea [] : Denies dysuria or hematuria [] Musculoskeletal: Denies back pain or joint pain [] Integument: Denies rash or skin lesions [] Neurologic: Reports altered mental status, lethargy. History provided by son All other systems were reviewed and found to be within normal limits, except as documented in this note. (LEMUEL LEON [employer]SEM[employer] INS[employer] HELPER) Current Medications Current Medications Current Medications Medications (Trade) Dose Ordered Sig/Carter Start Time Stop Time Status Last Admin Dose Admin Sodium Chloride 1,000 ml @ 1,000 mls/hr 1X ONCE 04/15/21 10:30 04/15/21 11:29 Sodium Chloride (Normal Saline Flush) 10 ml QSHIFT PRN 12/11/21 10:30 (LEMUEL LEON [facility]) Allergies Allergies Allergies Coded Allergies Type Severity Reaction Last Updated Verified No Known Drug Allergies 06/24/13 No (LEMUEL LEON APRN) Physical Exam Physical Exam Constitutional: Well developed, well nourished, no acute distress, non-toxic appearance. [] HENT: Normocephalic, atraumatic, bilateral external ears normal, oropharynx moist, no oral exudates, nose normal. [] Eyes: PERRLA, EOMI, conjunctiva normal, no discharge. [] Neck: Normal range of motion, no tenderness, supple, no stridor. [] Cardiovascular:Heart rate regular rhythm, Lungs & Thorax: decreased breath sounds, apneic breathing Abdomen: Bowel sounds normal, soft, no tenderness, no masses, no pulsatile masses. [] Skin: Warm, dry, no erythema, no rash. [] Back: No tenderness, no CVA tenderness. [] Extremities: No tenderness, no cyanosis, no clubbing, ROM intact, no edema. [] Neurologic: Alert and oriented X 0 only responds to pain. Psychologic: SONAM due to mentation (LEMUEL LEON [employer]SEM[employer] INSPECTOR HELPER) Current Patient Data Vital Signs Vital Signs Date Time Temp Pulse Resp B/P (MAP) Pulse Ox O2 Delivery O2 Flow Rate FiO2 04/15/21 10:21 98.1 76 19 90/62 (71) 98 Room Air (LEMUEL LEON [facility]) EKG EKG [address] Canela sinus rhythm HR 76 no STEMI (LEMUEL LEON [facility]) Radiology/Procedures Radiology/Procedures []PROCEDURE: CHEST AP ONLY Exam performed: One view chest. Indication: Reason: AMS / Spl. Instructions: / History: Date of Service: 04/15/2021 2:17 PM Comparison: One view chest from 03/20/2021. Single AP upright portable view chest findings: Cardiomediastinal silhouette is within limits of normal. Minimal linear opacities are present in the left lung base likely atelectasis. No pleural effusion or pneumothorax is detected. The bony structures are normal. Impression: Minimal linear opacities left lung base likely atelectasis or scarring. Electronically signed by: Jahaira Alvarez MD (04/15/2021 2:42 PM) [facility] DICTATED AND SIGNED BY: JAHAIRA ALVAREZ MD DATE: 04/15/21 1441 CC: LEMUEL LEON APRN; TRAY GUTIÉRREZ MD ~MTH0 0 PROCEDURE: CT HEAD WO CONTRAST Exam: CT head without contrast. Date: 04/15/2021, comparison:CT head without contrast from 04/10/2021 Indication: Altered mental status. Technique: 5 mm axial images of the head were obtained without contrast. Findings: There is low attenuation within the periventricular white matter consistent with chronic small vessel ischemic disease. Prominence of cortical sulci and ventricular system is noted. There is cerebral atrophy. Midline structures are central. No hydrocephalus. No suspicious cerebral edema. No mass lesion or midline shift is seen. No extra axial fluid collection, intracranial hemorrhage or acute ischemia is detected. The visualized paranasal sinuses and mastoid air cells are clear. The osseous calvarium appears unremarkable. Impression: 1.Chronic small vessel ischemic disease and cerebral atrophy. 2.No acute findings. PQRS Compliance Statement: One or more of the following individualized dose reduction techniques were utilized for this examination: 1. Automated exposure control 2. Adjustment of the mA and/or kV according to patient size 3. Use of iterative reconstruction technique Electronically signed by: Jahaira Alvarez MD (04/15/2021 1:58 PM) [facility] DICTATED AND SIGNED BY: JAHAIRA ALVAREZ MD DATE: 04/15/21 1354 CC: LEMUEL LEON APRN; TRAY GUTIÉRREZ MD ~MTH0 0 (LEMUEL LEON APRN) Heart Score C/O Chest Pain: N/A Risk Factors: Risk Factors: DM, Current or recent (<one month) smoker, HTN, HLP, family history of CAD, obesity. Risk Scores: Risk Factors: DM, Current or recent (<one month) smoker, HTN, HLP, family history of CAD, obesity. (LEMUEL LEON APRN) Course & Med Decision Making Course & Med Decision Making Pertinent Labs and Imaging studies reviewed. (See chart for details) This is a 86-year-old female patient presenting to the ED today with the son, son is doing the speaking, son states patient has been lethargic since last ni ght, she has not had anything to eat or drink for almost 2 weeks. Patient is asleep lethargic and arouses to pain stimulus. After some time in the ED patient was awake alert and talking to the son in Japanese. CT of the head is negative for any acute findings, chest x-ray is negative, CBC CMP with troponin and EKG are negative. Negative influenza A and B, negative rapid Covid test. Positive for UTI. Patient was given IV fluids and Rocephin in the ED. She continued to be awake oriented. She will be discharged back to the retirement with cephalexin. You have urinary tract infection, take the prescribed antibiotics until co mpleted. Follow-up with your doctor in 1 week. Push fluids. (LEMUEL LEON APRN) Dragon Disclaimer Dragon Disclaimer This electronic medical record was generated, in whole or in part, using a voice recognition dictation system. (LEMUEL LEON APRN) Attending Co-Sign The patient was seen and interviewed as well as examined at the bedside. The chart was reviewed. The case was discussed. Agree with the plan of care. (MELISSA CANELA DO) Departure Departure: Impression: Primary Impression: Urinary tract infection Additional Impression: AMS (altered mental status) Disposition: 01 HOME / SELF CARE / HOMELESS Condition: STABLE Referrals: TRAY GUTIÉRREZ MD (PCP) follow Up in 1 week Patient Instructions: Altered Mental Status, Urinary Tract Infection Additional Instructions: You have urinary tract infection, please take the prescribed antibiotics until completed. Follow-up with your doctor in the course of next week. Push fluids. Scripts Cephalexin (CEPHALEXIN) 500 Mg Tablet 1 TAB PO BID, #14 TAB Prov: LEMUEL LEON APRN 04/15/21 Problem Qualifiers Primary Impression: Urinary tract infection Urinary tract infection type: site unspecified Hematuria presence: without hematuria Qualified Codes: N39.0 - Urinary tract infection, site not specified Additional Impression: AMS (altered mental status) Altered mental status type: unspecified Qualified Codes: R41.82 - Altered mental status, unspecified LEMUEL LEON APRN Apr 15, 2021 11:06 MELISSA CANELA DO Apr 16, 2021 14:35
--- NOTE | 2021-04-15 11:20 | EKG ---
[address] [address] Test Date: 2021-04-15 Test Time: 10:39:58 Pat Name: SKINNY JO Department: Room: Gender: F Pedicurist: FUAD : 1935 Requested By: LEMUEL LEON Order Number: [id number] Reading MD: Measurements Intervals [place] Rate: 76 P: 34 CT: 194 QRS: -20 QRSD: 68 T: 36 QT: 374 QTc: 425 Interpretive Statements SINUS RHYTHM LEFTWARD AXIS LOW LIMB LEAD VOLTAGE QRS(T) CONTOUR ABNORMALITY CONSISTENT WITH INFERIOR INFARCT PROBABLY OLD ABNORMAL ECG RI6.02 No previous ECG available for comparison
[2021-04-15 11:56] LABS: BARBITURATES NEG (NEG); BENZODIAZEPINES NEG (NEG); CANNABINOIDS NEG (NEG); COCAINE NEG (NEG); METHADONE NEG (NEG); OPIATES POS (NEG); PHENCYCLIDINE NEG (NEG)
[2021-04-15 12:12] LABS: INFLUENZA A PATIENT NEGATIVE (NEGATIVE); INFLUENZA B PATIENT NEGATIVE (NEGATIVE)
[2021-04-15 12:17] LABS: AMPHETAMINE/METHAMPHETAMINE NEG (NEG)
[2021-04-15 12:26] LABS: BILIRUBIN,URINE NEG (NEG); CLARITY,URINE CLOUDY; COLOR,URINE YELLOW; GLUCOSE,URINE NEG (NEG)
[2021-04-15 12:27] LABS: NITRITE,URINE POS (NEG); UROBILINOGEN,URINE 0.2 mg/dL (0.2 mg/dL)
[2021-04-15 12:27] LABS: ANION GAP 9 (6-14); BLOOD UREA NITROGEN 21 mg/dL (7-20); BUN/CREATININE RATIO 21 (6-20); CALCIUM 8.3 mg/dL (8.5-10.1); CARBON DIOXIDE 27 mmol/L (21-32); CHLORIDE 108 mmol/L (98-107); GFR 52.8; GLUCOSE 84 mg/dL (70-99); POTASSIUM 4.2 mmol/L (3.5-5.1); SODIUM 144 mmol/L (136-145)
[2021-04-15 12:29] LABS: BACTERIA,URINE MANY /HPF (0-FEW); SQUAMOUS EPITHELIAL CELL,UR FEW /LPF; WBC,URINE >40 /HPF (0-4)
[2021-04-15 12:35] LABS: BASO # 0.1 x10^3/uL (0.0-0.2); BASO % 1 % (0-3); EOS # 0.2 x10^3/uL (0.0-0.7); EOS % 2 % (0-3); HEMATOCRIT 39.5 % (36.0-47.0); LYMPH # 4.3 x10^3/uL (1.0-4.8); LYMPH % 55 % (24-48); MEAN CORPUSCULAR HEMOGLOBIN 32 pg (25-35); MEAN CORPUSCULAR HGB CONC 33 g/dL (31-37); MEAN CORPUSCULAR VOLUME 98 fL (79-100); MONO % 12 % (0-9); NEUT # 2.4 x10^3uL (1.8-7.7); NEUT % 30 % (31-73); PLATELET COUNT 217 x10^3/uL (140-400); RED BLOOD COUNT 4.03 x10^6/uL (3.50-5.40); RED CELL DISTRIBUTION WIDTH 15.6 % (11.5-14.5); WHITE BLOOD COUNT 7.8 x10^3/uL (4.0-11.0)
[2021-04-15 12:44] LABS: ALBUMIN 2.8 g/dL (3.4-5.0); ALBUMIN/GLOBULIN RATIO 0.8 (1.0-1.7); ALK PHOS 50 U/L (46-116); ALT (SGPT) 16 U/L (14-59); AST (SGOT) 18 U/L (15-37); MAGNESIUM 1.7 mg/dL (1.8-2.4); TOTAL BILIRUBIN 0.3 mg/dL (0.2-1.0); TOTAL PROTEIN 6.5 g/dL (6.4-8.2)
[2021-04-15 13:19] LABS: % ATYL 30 % (0-0); % BASOS 1 % (0-3); % EOS 3 % (0-5); % LYMPHS 30 % (24-48); % MONOS 7 % (0-10); % SEGS 29 % (35-66); PLT ESTIMATE ADEQUATE (ADEQUATE)
[2021-04-15] MEDS ORDERED: cefTRIAXone SODIUM 1 GM VIAL ONE (13:32)
[2021-04-15] MEDS ORDERED: IV NORMAL SALINE 50ML 50 ML ONE (13:32)
--- NOTE | 2021-04-15 14:00 | RAD ---
Exam: CT head without contrast. Date: 04/15/2021, comparison:CT head without contrast from 04/10/2021 Indication: Altered mental status. Technique: 5 mm axial images of the head were obtained without contrast. Findings: There is low attenuation within the periventricular white matter consistent with chronic small vessel ischemic disease. Prominence of cortical sulci and ventricular system is noted. There is cerebral at rophy. Midline structures are central. No hydrocephalus. No suspicious cerebral edema. No mass lesion or mid line shift is seen. No extra axial fluid collection, intracranial hemorrhage or acute ischemia is de tected. The visualized paranasal sinuses and mastoid air cells are clear. The osseous calvarium appea rs unremarkable. Impression: 1.Chronic small vessel ischemic disease and cerebral atrophy. 2.No acute findings. PQRS Compliance Statement: One or more of the following individualized dose reduction techniques were utilized for this examinat ion: 1. Automated exposure control 2. Adjustment of the mA and/or kV according to patient size 3. Use of iterative reconstruction technique Electronically signed by: Jahaira Alvarez MD (04/15/2021 1:58 PM) [facility] [place]
--- NOTE | 2021-04-15 14:45 | RAD ---
Exam performed: One view chest. Indication: Reason: AMS / Spl. Instructions: / History: Date of Service: 04/15/2021 2:17 PM Comparison: One view chest from 03/20/2021. Single AP upright portable view chest findings: Cardiomediastinal silhouette is within limits of normal. Minimal linear opacities are present in the left lung base likely atelectasis. No pleural effusion or pneumothorax is detected. The bony structu res are normal. Impression: Minimal linear opacities left lung base likely atelectasis or scarring. Electronically signed by: Jahaira Alvarez MD (04/15/2021 2:42 PM) [facility]
[2021-04-15] MEDS ORDERED: CEPH500T PO (15:07)
[2021-04-15 15:09] VITALS: BP 117/56
== END 2021-04-15 16:00 | disposition home or self-care (01) ==
LOC: ER 10:04
DX: R41.82 Altered mental status, unspecified (principal); N39.0 Urinary tract infection, site not specified; E11.9 Type 2 diabetes mellitus without complications; K21.9 Gastro-esophageal reflux disease without esophagitis; I10 Essential (primary) hypertension; Z20.822 Contact with and (suspected) exposure to COVID-19
CPT/HCPCS: 36415; 70450; 71045; 80053; 80307; 81001; 82553; 83605; 83735; 83880; 84484; 85007; 85025; 85730; 87040; 87086; 87426; 87804; 93005; 96361; 96365; 99285; C9803; J0696; J7030; U0003

== ENCOUNTER 2021-05-01 09:47 | Emergency (ER) | payer OTHER ==
[~2021-05-01] VITALS: Ht 152.4 cm; Wt 54.4 kg
[~2021-05-01 09:47] MED LIST changes: +CEPH500T PO
--- NOTE | 2021-05-01 09:51 | PHYS DOC ---
Past History Past Medical History: Arthritis, Constipation, Dementia, Depression, Diabetes, GERD, Hypertension, Other Additional Past Medical Histor: chronic constipation Past Surgical History: Other Additional Past Surgical Histo: UNKNOWN Smoking: Non-smoker Alcohol Use: None Drug Use: None Adult General Chief Complaint Chief Complaint: MECHANICAL FALL HPI HPI Patient is a 86-year-old female who presents to the emergency department with complaint of head neck and mid to low back pain, left shoulder, left upper arm, left forearm pain. Patient was transported to the emergency department via [facility] from [facility], transporting rebeamer reports he was given report by [facility] staff that patient was found on the floor in the bathroom, it is assumed she had fallen while trying to use the bathroom this morning. Unknown time of incident, fall is unwitnessed. It is unknown if there was loss of consciousness. Transporting rebeamer reports he was given report by [facility]itentiary staff patient was hypotensive with blood pressure 70/40. Transporting rebeamer reports normotensive blood pressures upon arrival to scene and during transport to emergency department. Patient is unable to articulate pain level score, per penitentiary transfer forms, patient has a history of chronic urinary tract infections, anemia, hypothyroidism, type 2 diabetes, vitamin deficiency anemia, hyperlipidemia, dementia, psychosis, major depressive disorder, anxiety disorder, insomnia, dry eye syndrome, hypertension, macular degeneration, allergic rhinitis, COPD, gingivitis, gastric esophageal reflux disease, constipation, chronic shoulder pains, polymyalgia rheumatica, muscle weakness, fibromyalgia, overactive bladder, chronic shortness of breath, chronic nausea, difficulty walking, restlessness and agitation, chronic pains, abnormal weight loss. Patient's primary language per penitentiary sheet is Palauan, EMS rebeamer gave report patient is Hungarian-speaking only, patient appears to understand Palauan, answers in Palauan and a language similar to Hungarian, health management consultant contacted for interpretation, health management consultant service reports patient is not speaking Hungarian, when health management consultant introduces self and speaks to patient in Hungarian, the patient appears confused and does not respond in a language that the health management consultant reports is Hungarian. HPI is limited related to communication discrepancy. Patient does answer yes and no to questions. Physical complaints of pain were elicited during physical examination asking patient in Palauan if she hurts or not, however patient is unable to explain events of alleged fall. Review of Systems Review of Systems Limited ROS related to patient's cognitive status and apparent language barrier Allergies Allergies Allergies Coded Allergies Type Severity Reaction Last Updated Verified No Known Drug Allergies 06/24/13 No Physical Exam Physical Exam Constitutional: Well developed, well nourished, no acute distress, non-toxic appearance. 86-year-old female in no apparent distress. HENT: Normocephalic, atraumatic. No contusions or skull depressions appreciated with palpation of the scalp, pain elicited with palpation over occipital area, no larios sign, no raccoon eyes, no malocclusion appreciated, no drooling, no trismus, bilateral TMs intact and within normal limits, no drainage from external auditory canals. Eyes: Conjunctiva normal, no discharge. PERRLA, Neck: Normal range of motion, no stridor. Pain to palpation along midline C-spi ne without crepitus, deformity, or step-offs noted. No areas of ecchymosis appreciated. Cardiovascular: No cyanosis appreciated, distal cap refill less than 2 seconds. Lungs & Thorax: Patient is in no respiratory distress, no audible adventitious lung sounds appreciated. Lung sounds clear to auscultate all lung plummer. Abdomen: Nontender, no abnormalities noted. Skin: Warm, dry, no erythema, no rash. Back: No tenderness, no deformities. Extremities: No tenderness, no cyanosis, no clubbing, ROM intact, no edema. Patient complains of pain with palpation of the left shoulder, humerus, elbow, forearm, limited passive range of motion related to eliciting of pain, no deformities, no swelling, no ecchymosis, no crepitus appreciated, 2+ radial pulses equal bilaterally, distal cap refill less than 2 seconds bilateral upper extremities. Neurologic: Alert and oriented to self only, normal motor function, normal sensory function, no focal deficits noted. Psychologic: Affect normal, judgement normal, mood normal. EKG EKG [] Radiology/Procedures Radiology/Procedures REASON: Fall, head and neck pain PROCEDURE: CT HEAD AND CERVICAL SPINE WO CT HEAD AND C-SPINE WO Date: 05/01/2021 10:45 AM Clinical Indication: Fall, head and neck pain Comparison: 04/15/2021. Technique: 5 mm axial tomographic images were obtained of the head without contrast. These were viewed on brain and bone windows. Noncontrast CT of the cervical spine was performed. Sagittal and coronal reformats were performed and evaluated. One or more of the following dose reduction techniques were utilized: Automated exposure control (AEC), Adjustment of mA and/or kV according to patient size, Use of iterative reconstruction technique such as ASiR, CT scan done according to ALARA and image gently/image wisely HEAD FINDINGS: Motion artifact degrades image quality. Moderate generalized cerebral and cerebellar volume loss. Moderate nonspecific periventricular hypoattenuation, most commonly seen with chronic small vessel ischemic disease. Moderate cerebral volume loss. Left frontal encephalomalacia. No intra- or extra-axial mass or fluid collection. No acute hemorrhage. The ventricles are normal in size, shape, and morphology. The bhandari-white matter junction is normal. The basilar cisterns are patent. The visualized paranasal sinuses are normal. The visualized portions of the orbits and globes are normal. The mastoid air cells are clear. No aggressive osseous lesion or fracture. CERVICAL SPINE FINDINGS: The cervical spine is normally aligned. No acute fracture. No aggressive lytic or blastic osseous lesions. Mild multilevel degenerative disc space height loss. Multilevel mild spinal canal stenosis secondary to disc protrusions and marginal osteophytes. Multilevel mild neuroforaminal narrowing secondary to uncovertebral arthrosis. Multilevel mild facet arthrosis. The thyroid gland is atrophic. No cervical lymphadenopathy. Bilateral carotid atherosclerosis. The visualized aerodigestive tract is normal. The visualized portions of the lungs are clear. IMPRESSION: 1. No acute intracranial process. 2. No acute cervical spine fracture. Electronically signed by: Ricki Rose MD (05/01/2021 11:53 AM) [id number] REASON: Fall, thoracolumbar pain PROCEDURE: CT THORACIC SPINE WO CONTRAST CT LUMBAR SPINE WO, CT THORACIC SPINE WO, CT CHEST+ABD+PELVIS W Clinical Indication: Fall, pain, hypotension COMPARISON: None TECHNIQUE: Multiple contiguous axial images were obtained throughout the chest, abdomen, and pelvis with the use of IV contrast. Axial images were reformatted into coronal and sagittal planes. Dedicated multiplanar reconstructions of the thoracic and lumbar spine were obtained. One or more of the following dose reduction techniques were utilized: Automated exposure control (AEC), Adjustment of mA and/or kV according to patient size, Use of iterative reconstruction technique such as ASiR, CT scan done according to ALARA and image gently/image wisely. Findings: The thyroid is symmetric. There is no axillary, mediastinal, or hilar adenopathy. The thoracic aorta diameter is normal. The cardiac size is normal. Coronary artery atherosclerotic disease. There is no pericardial effusion. The central airways are patent. No pulmonary mass or consolidation. No pleural effusion is observed. There is no pneumothorax. The liver, spleen, pancreas, and adrenal glands are unremarkable. Cholecystectomy. No hydronephrosis. Bilateral nonobstructive renal calculi. There is no significant mesenteric or retroperitoneal adenopathy identified. There is no evidence of free intraperitoneal fluid or pneumoperitoneum. Visualized portions of the bowel are grossly unremarkable. Mild aortoiliac a therosclerotic disease. Bladder is decompressed. Hysterectomy. There is no significant pelvic ascites. No significant iliac or inguinal adenopathy is identified. No acute osseous abnormality. Moderate thoracic degenerative disc disease. Severe lumbar degenerative disc disease. Straightening of the normal lumbar lordosis. Left convex lumbar curvature IMPRESSION: 1. No evidence of major traumatic thoracic injury. No abdominal solid organ injury. 2. No acute thoracic or lumbar spine fracture. Electronically signed by: Ricki Rose MD (05/01/2021 12:03 PM) [id number] REASON: Fall, left shoulder pain PROCEDURE: SHOULDER 2+V LEFT XR HUMERUS_LT 2 VIEWS, XR SHOULDER_LEFT 2+ VIEWS, XR FOREARM_LEFT 2 VIEWS DATE: 05/01/2021 10:03 AM INDICATION: Fall, left shoulder pain COMPARISON: None. FINDINGS: Bones: There is no evidence of acute fracture or dislocation. Joints: The joint spaces are normal. Miscellaneous: No abnormal soft tissue calcifications in the shoulder. IMPRESSION: No evidence of acute left shoulder, humerus, or forearm fracture. Electronically signed by: Ricki Rose MD (05/01/2021 12:05 PM) [id number] Heart Score C/O Chest Pain: No Risk Factors: Risk Factors: DM, Current or recent (<one month) smoker, HTN, HLP, family history of CAD, obesity. Risk Scores: Risk Factors: DM, Current or recent (<one month) smoker, HTN, HLP, family history of CAD, obesity. Course & Med Decision Making Course & Med Decision Making Pertinent Labs and Imaging studies reviewed. (See chart for details) 86-year-old female, vital signs reviewed, presents to the emergency department via EMS transport for alleged unwitnessed fall in bathroom just prior to arrival to the ER. Time of fall is unknown, patient does not seem to understand when asked if she fell or not, there is an apparent language barrier, it was reported patient speaks Hungarian however health management consultant service reports patient is not speaking in Hungarian during their conversation. The patient does appear confused when the health management consultant speaks to the patient. The patient is forming words that are not Palauan, unknown what language patient is speaking. With indeterminate events surrounding patient found on floor in bathroom and pain elicited with palpation to head, neck, T-spine and L-spine, left shoulder left upper arm and left forearm, will order CT head and neck without contrast, chest abdomen pelvis with contrast with reconstruction of thoracic and lumbar spine, x-ray imaging of left shoulder, humerus, forearm, EKG, troponin I to rule out cardiac component, CBC, CMP, urinalysis assay. Patient's imaging unremarkable for acute fracture or injury, EKG, troponin I unremarkable, patient CBC, CMP within normal limits or at baseline, patient's urine is infected, upon review of previous culture and sensitivities will choose Bactrim DS antibiotic regimen. Will start first dose here in ED and write prescription to be [facility]. Discussed findings with patient's son, follow-up with primary care for reevaluation of urinary tract infection, return to ER precautions and concerns, patient son who is reported DPOA gave verbal understanding and amenable with ED discharge planning. Discussed with the patient's DPOA son all findings and diagnostic testing as well as the need to follow-up with their primary care provider for further evaluation and treatment or return to the ED if any new or worsening symptoms. Strict return precautions were also discussed at length, the patient voiced understanding and agreement with the discharge planning. The patient was nontoxic in appearance, in no apparent distress, and hemodynamically stable at the time of disposition. Dragon Disclaimer Dragon Disclaimer This electronic medical record was generated, in whole or in part, using a voice recognition dictation system. Departure Departure: Impression: Primary Impression: Urinary tract infection Additional Impressions: Fall Left upper arm pain Disposition: HOME / SELF CARE / HOMELESS Condition: GOOD Referrals: TRAY GUTIÉRREZ MD (PCP) Patient Instructions: Fall Prevention and Home Safety, Urinary Tract Infection Additional Instructions: You were seen today in the emergency department after a alleged fall at [facility]. The CT scans of your head neck chest abdomen pelvis thoracic spine and lumbar spine did not show any signs acute fracture or injury, the x- rays of your left shoulder, upper arm and forearm and elbow did not show signs of fracture or injury. You were given a Vicodin today in the emergency department for pain. You were also started on an antibiotic Bactrim DS for a urinary tract infection. Please take as directed until complete. Follow-up with your primary care provider this week for reevaluation of your urinary tract infection. Return to the emergency department for worsening symptoms or other concerns. Thank you for visiting our Emergency Department. It was a pleasure taking care of you today in the emergency department and we appreciate you trusting us with your care. If any additional problems come up don't hesitate to return to visit us. Please follow up with your primary care provider so they can plan additional care if needed and know about the problem that you had. If symptoms worsen come back to the Emergency Department. Any concerning symptoms that start such as chest pain, shortness of air, weakness or numbness on one side of the body, running high fevers or any other concerning symptoms return to the ER. EMERGENCY DEPARTMENT GENERAL DISCHARGE INSTRUCTIONS Thank you for coming to [facility] (ED) today and trusting us with you care. We trust that you had a positivie experience in our Emergency Department. If you wish to speak to the department management, you may call the director at [phone]. YOUR FOLLOW UP INSTRUCTIONS ARE FOLLOWS: 1. Do you have a private Doctor? If you do not have a private doctor, please ask for a resource list of physicians or clinics that may be able to assist you with follow up care. 2. The Emergency Physician has interpreted your x-rays. The X-Ray specialist will also review them. If there is a change in the findings, you will be notified in 48 hours when at all possible. 3. A lab test or culture has been done, your results will be reviewed and you will be notified if you need a change in treatment. ADDITIONAL INSTRUCTIONS AND INFORMATION: 1. Your care today has been supervised by a physician who is specially trained in emergency care. Many problems require more than one evaluation for a complete diagnosis and treatment. We recommend that you schedule your follow up appointment as recommended to ensure complete treatment of you illness or injury. If you are unable to obtain follow up care and continue to have a problem, or if your condition worsens, we recommend that you return to the ED. 2. We are not able to safely determine your condition over the phone nor are we able to give sound medical advice over the phone. For these safety reasons, if you call for medical advice we will ask you to come to the ED for further evaluation. 3. If you have any questions regarding these discharge instructions please call the ED at [phone]. SAFETY INFORMATION: In the interest of safety, wellness, and injury prevention; we encourage you to wear your sealbelt, if you smoke; quite smoking, and we encourage family to use a protective helmet for bicycling and other sporting events that present an increased risk for head injury. IF YOUR SYMPTOMS WORSEN OR NEW SYMPTOMS DEVELOP, OR YOU HAVE CONCERNS ABOUT YOUR CONDITION; OR IF YOUR CONDITION WORSENS WHILE YOU ARE WAITING FOR YOUR FOLLOW UP APPOINTMENT; EITHER CONTACT YOUR PRIMARY CARE DOCTOR, THE PHYSICIAN WHOSE NAME AND NUMBER YOU WERE GIVEN, OR RETURN TO THE ED IMMEDIATELY. Scripts Sulfamethoxazole/Trimethoprim (BACTRIM DS TABLET) 1 Each Tablet 1 TAB PO BID for UTI for 10 Days, #20 TAB 0 Refills Prov: DIANA HENRY APRN 05/01/21 Problem Qualifiers Primary Impression: Urinary tract infection Urinary tract infection type: site unspecified Hematuria presence: with hematuria Qualified Codes: N39.0 - Urinary tract infection, site not specified; R31.9 - Hematuria, unspecified Additional Impressions: Fall Encounter type: initial encounter Qualified Codes: W19.XXXA - Unspecified fall, initial encounter DIANA HENRY APRN May 01, 2021 09:50
[2021-05-01 09:55] VITALS: BP 125/44
[2021-05-01] MEDS ORDERED: IOHEXOL 300 MG/ML 75 ML VIAL. IV ONE (10:15)
--- NOTE | 2021-05-01 10:40 | EKG ---
[address] [address] Test Date: 2021-05-01 Test Time: 10:34:58 Pat Name: SKINNY JO Department: Room: Gender: F V Belt Skiver: FUAD : 1935 Requested By: DIANA HENRY Order Number: [id number] Reading MD: Mingo Phillips Measurements Intervals [place] Rate: 67 P: 40 DC: 196 QRS: -2 QRSD: 66 T: 16 QT: 382 QTc: 406 Interpretive Statements SINUS RHYTHM LEFTWARD AXIS Electronically Signed On 05-03-2021 8:21:29 PHONE OPERATOR by Mingo Phillips
[2021-05-01 10:58] LABS: BASO # 0.1 x10^3/uL (0.0-0.2); BASO % 1 % (0-3); EOS # 0.3 x10^3/uL (0.0-0.7); EOS % 3 % (0-3); HEMATOCRIT 38.6 % (36.0-47.0); HEMOGLOBIN 12.7 g/dL (12.0-15.5); LYMPH # 3.4 x10^3/uL (1.0-4.8); LYMPH % 43 % (24-48); MEAN CORPUSCULAR HEMOGLOBIN 32 pg (25-35); MEAN CORPUSCULAR HGB CONC 33 g/dL (31-37); MEAN CORPUSCULAR VOLUME 98 fL (79-100); MONO # 0.9 x10^3/uL (0.0-1.1); MONO % 11 % (0-9); NEUT # 3.2 x10^3uL (1.8-7.7); NEUT % 41 % (31-73); PLATELET COUNT 250 x10^3/uL (140-400); RED BLOOD COUNT 3.94 x10^6/uL (3.50-5.40); WHITE BLOOD COUNT 7.8 x10^3/uL (4.0-11.0)
[2021-05-01 11:13] LABS: CALCIUM 7.8 mg/dL (8.5-10.1); CREATININE 0.9 mg/dL (0.6-1.0); GFR 59.7; POTASSIUM 4.3 mmol/L (3.5-5.1)
[2021-05-01 11:19] LABS: ALBUMIN 2.3 g/dL (3.4-5.0); ALBUMIN/GLOBULIN RATIO 0.6 (1.0-1.7); TOTAL BILIRUBIN 0.4 mg/dL (0.2-1.0); TOTAL PROTEIN 5.9 g/dL (6.4-8.2)
--- NOTE | 2021-05-01 11:56 | RAD ---
CT HEAD AND C-SPINE WO Date: 05/01/2021 10:45 AM Clinical Indication: Fall, head and neck pain Comparison: 04/15/2021. Technique: 5 mm axial tomographic images were obtained of the head without contrast. These were view ed on brain and bone windows. Noncontrast CT of the cervical spine was performed. Sagittal and bloom l reformats were performed and evaluated. One or more of the following dose reduction techniques were utilized: Automated exposure control (AEC), Adjustment of mA and/or kV according to patient size, Us e of iterative reconstruction technique such as ASiR, CT scan done according to ALARA and image gentl y/image wisely HEAD FINDINGS: Motion artifact degrades image quality. Moderate generalized cerebral and cerebellar volume loss. Moderate nonspecific periventricular hypoat tenuation, most commonly seen with chronic small vessel ischemic disease. Moderate cerebral volume lo ss. Left frontal encephalomalacia. No intra- or extra-axial mass or fluid collection. No acute hemorrhage. The ventricles are normal in size, shape, and morphology. The bhandari-white matter junction is normal. The basilar cisterns are paten t. The visualized paranasal sinuses are normal. The visualized portions of the orbits and globes are no rmal. The mastoid air cells are clear. No aggressive osseous lesion or fracture. CERVICAL SPINE FINDINGS: The cervical spine is normally aligned. No acute fracture. No aggressive lytic or blastic osseous les ions. Mild multilevel degenerative disc space height loss. Multilevel mild spinal canal stenosis secondary to disc protrusions and marginal osteophytes. Multilevel mild neuroforaminal narrowing secondary to u ncovertebral arthrosis. Multilevel mild facet arthrosis. The thyroid gland is atrophic. No cervical lymphadenopathy. Bilateral carotid atherosclerosis. The vi sualized aerodigestive tract is normal. The visualized portions of the lungs are clear. IMPRESSION: 1. No acute intracranial process. 2. No acute cervical spine fracture. Electronically signed by: Ricki Rose MD (05/01/2021 11:53 AM) [id number]
--- NOTE | 2021-05-01 12:06 | RAD ---
CT LUMBAR SPINE WO, CT THORACIC SPINE WO, CT CHEST+ABD+PELVIS W Clinical Indication: Fall, pain, hypotension COMPARISON: None TECHNIQUE: Multiple contiguous axial images were obtained throughout the chest, abdomen, and pelvis with the use of IV contrast. Axial images were reformatted into coronal and sagittal planes. Dedicated multiplana r reconstructions of the thoracic and lumbar spine were obtained. One or more of the following dose r eduction techniques were utilized: Automated exposure control (AEC), Adjustment of mA and/or kV accor ding to patient size, Use of iterative reconstruction technique such as ASiR, CT scan done according to ALARA and image gently/image wisely. Findings: The thyroid is symmetric. There is no axillary, mediastinal, or hilar adenopathy. The thoracic aorta diameter is normal. The cardiac size is normal. Coronary artery atherosclerotic di sease. There is no pericardial effusion. The central airways are patent. No pulmonary mass or consolidation. No pleural effusion is observed. There is no pneumothorax. The liver, spleen, pancreas, and adrenal glands are unremarkable. Cholecystectomy. No hydronephrosis. Bilateral nonobstructive renal calculi. There is no significant mesenteric or retroperitoneal adeno summer identified. There is no evidence of free intraperitoneal fluid or pneumoperitoneum. Visualize d portions of the bowel are grossly unremarkable. Mild aortoiliac atherosclerotic disease. Bladder is decompressed. Hysterectomy. There is no significant pelvic ascites. No significant iliac or inguinal adenopathy is identified. No acute osseous abnormality. Moderate thoracic degenerative disc disease. Severe lumbar degenerative disc disease. Straightening of the normal lumbar lordosis. Left convex lumbar curvature IMPRESSION: 1. No evidence of major traumatic thoracic injury. No abdominal solid organ injury. 2. No acute thoracic or lumbar spine fracture. Electronically signed by: Ricki Rose MD (05/01/2021 12:03 PM) [id number]
--- NOTE | 2021-05-01 12:07 | RAD ---
XR HUMERUS_LT 2 VIEWS, XR SHOULDER_LEFT 2+ VIEWS, XR FOREARM_LEFT 2 VIEWS DATE: 05/01/2021 10:03 AM INDICATION: Fall, left shoulder pain COMPARISON: None. FINDINGS: Bones: There is no evidence of acute fracture or dislocation. Joints: The joint spaces are normal. Miscellaneous: No abnormal soft tissue calcifications in the shoulder. IMPRESSION: No evidence of acute left shoulder, humerus, or forearm fracture. Electronically signed by: Ricki Rose MD (05/01/2021 12:05 PM) [id number]
[2021-05-01] MEDS ORDERED: HYDROcodone/APAP 5/325MG 1 TAB TABLET PO ONE (13:00)
[2021-05-01 13:53] LABS: BILIRUBIN,URINE NEG (NEG); CLARITY,URINE HAZY; COLOR,URINE YELLOW; GLUCOSE,URINE NEG (NEG)
[2021-05-01 13:54] LABS: BACTERIA,URINE MOD /HPF (0-FEW); NITRITE,URINE POS (NEG); SQUAMOUS EPITHELIAL CELL,UR MOD /LPF; UROBILINOGEN,URINE 0.2 mg/dL (0.2 mg/dL); WBC,URINE >40 /HPF (0-4)
[2021-05-01] MEDS ORDERED: SULF1TAB24 PO (14:07)
[2021-05-01] MEDS ORDERED: SMZ/TMP 800/160MG TABLET. PO ONE ×2 (14:11→14:30)
== END 2021-05-01 16:51 | disposition home or self-care (01) ==
LOC: ER 09:47
DX: N39.0 Urinary tract infection, site not specified (principal); M79.602 Pain in left arm; R51.9 Headache, unspecified; M54.9 Dorsalgia, unspecified; M54.59 Other low back pain; E03.9 Hypothyroidism, unspecified; E11.9 Type 2 diabetes mellitus without complications; E78.5 Hyperlipidemia, unspecified; I10 Essential (primary) hypertension; J44.9 Chronic obstructive pulmonary disease, unspecified; K21.9 Gastro-esophageal reflux disease without esophagitis; G89.29 Other chronic pain; F03.90 Unspecified dementia, unspecified severity, without behavioral disturbance, psychotic disturbance, mood disturbance, and anxiety; Z87.440 Personal history of urinary (tract) infections; Z86.2 Personal history of diseases of the blood and blood-forming organs and certain disorders involving the immune mechanism; W18.39XA Other fall on same level, initial encounter; Y93.89 Activity, other specified; Y92.89 Other specified places as the place of occurrence of the external cause; Y99.8 Other external cause status
CPT/HCPCS: 36415; 70450; 71260; 72125; 72128; 72131; 73030; 73060; 73090; 74177; 80053; 81001; 84484; 85025; 87077; 87086; 87186; 93005; 99285

== ENCOUNTER 2021-05-10 08:21 | Emergency (ER) | payer OTHER ==
[~2021-05-10] VITALS: Ht 160 cm; Wt 59.0 kg
--- NOTE | 2021-05-10 08:36 | PHYS DOC ---
Past History Past Medical History: Arthritis, Constipation, Dementia, Depression, Diabetes, GERD, Hypertension, Other Additional Past Medical Histor: chronic constipation Past Surgical History: Other Additional Past Surgical Histo: UNKNOWN Smoking: Non-smoker Alcohol Use: None Drug Use: None General Adult EDM: Chief Complaint: MECHANICAL FALL HPI: HPI: 86-year-old female who presents to the emergency department [facility] from [facility], concern for unwitnessed fall. Pt was found down. Pt with incomprehensible speech-per emr review, has a h/o language barrier-seen on 05/01/21 ed visit and has h/o known dementia. NH called by RN-pt is at her baseline mental status and speech, has known incomprehensible speech. Review of Systems: Review of Systems: ROS: Unobtainable due to dementia and incomprehensible speech Allergies: Allergies: Allergies Coded Allergies Type Severity Reaction Last Updated Verified No Known Drug Allergies 06/24/13 No Physical Exam: PE: Constitutional: No distress, lying on right side in position HENT:0.5 cm horizontal laceration to posterior occiput with no active bleeding, Eyes: Pupils equal and reactive, EOMI, conjunctiva normal, no discharge. Neck: Normal range of motion, supple, no midline step-offs Cardiovascular: S1/2 present, regular rhythm Lungs & Thorax: incomprehensible speech, bilateral equal chest rise, no tachypnea or increased work of breathing Abdomen: soft, no tenderness, no hip pain Skin: Warm, dry, Back: Left low back with ecchymosis -I suspect old and not acute bruising-no grimace with palpation, no midline step-offs or reproducible tenderness, Extremities: no cyanosis, no lower extremity edema, superficial skin abrasion over left lateral elbow with range of motion intact Neurologic: Resting comfortably, , no focal deficits noted. [] Psychologic: No agitation, calm mood EKG: EKG: [] Radiology/Procedures: Radiology/Procedures: IMAGING REPORT Signed PATIENT: SKINNY JOACCOUNT: [id number] : 1935 LOCATION: ER AGE: 86 SEX: F EXAM STATUS: REG ER ORD. PHYSICIAN: RYLIE CAMPBELL DO REASON: fall, dementia, uti PROCEDURE: CT HEAD AND CERVICAL SPINE WO CT HEAD AND C-SPINE WO Date: 05/10/2021 9:30 AM Clinical Indication: Reason: fall, dementia, uti / Spl. Instructions: / Hist ory: Comparison: 05/01/2021. Technique: 5 mm axial tomographic images were obtained of the head without contrast. These were viewed on brain and bone windows. Noncontrast CT of the cervical spine was performed. Sagittal and coronal reformats were performed and evaluated. One or more of the following dose reduction techniques were utilized: Automated exposure control (AEC), Adjustment of mA and/or kV according to patient size, Use of iterative reconstruction technique such as ASiR, CT scan done according to ALARA and image gently/image wisely HEAD FINDINGS: Motion artifact degrades image quality. Moderate generalized cerebral and cerebellar volume loss. Moderate nonspecific periventricular hypoattenuation, most commonly seen with chronic small vessel i schemic disease. Moderate cerebral volume loss. Redemonstrated left frontal encephalomalacia. No intra- or extra-axial mass or fluid collection. No acute hemorrhage. The ventricles are normal in size, shape, and morphology. The bhandari-white matter junction is normal. The basilar cisterns are patent. Similar complete opacification of the sphenoid sinuses with mild mucosal thickening of the ethmoid sinuses. Remaining paranasal sinuses are clear. The visualized portions of the orbits and globes are normal. The mastoid air cells are clear. No aggressive osseous lesion or fracture. CERVICAL SPINE FINDINGS: The cervical spine is normally aligned. No acute fracture. No aggressive lytic or blastic osseous lesions. Mild multilevel degenerative disc space height loss. Multilevel mild spinal canal stenosis secondary to disc protrusions and marginal osteophytes. Multilevel mild neuroforaminal narrowing secondary to uncovertebral arthrosis. Multilevel mild facet arthrosis. The thyroid gland is atrophic. No cervical lymphadenopathy. Bilateral carotid atherosclerosis. The visualized aerodigestive tract is normal. The visualized portions of the lungs are clear. IMPRESSION: 1. No acute intracranial process. 2. No acute cervical spine fracture. Electronically signed by: Yovany Brewster DO (05/10/2021 10:43 AM) [id number] DICTATED AND SIGNED BY: YOVANY BREWSTER DO DATE: 05/10/21 1037 CC: TRAY GUTIÉRREZ MD; RYLIE CAMPBELL DO ~MTH0 0 IMAGING REPORT Signed PATIENT: SKINNY JOACCOUNT: [id number] : 1935 LOCATION: ER AGE: 86 SEX: F EXAM STATUS: REG ER ORD. PHYSICIAN: RYLIE CAMPBELL DO REASON: fall, dementia, uti PROCEDURE: CT CHEST ABD PELVIS W/CONTRAST EXAM: CT Chest, Abdomen and Pelvis with IV contrast. Reformatted noncontrast images of the thoracic lumbar spine were also performed. CLINICAL HISTORY: Reason: fall, dementia, uti / Spl. Instructions: / History: COMPARISON: 05/01/2021 TECHNIQUE: Helical CT of the chest, abdomen and pelvis was performed following the administration of intravenous contrast. Axial, coronal and sagittal reformatted images were generated. ---PQRS compliance statement - One or more of the following individualized dose reduction techniques were utilized for this study: 1. Automated exposure control 2. Adjustment of the mA and/or kV according to patient size 3. Use of iterative reconstruction technique--- FINDINGS: CHEST: LUNGS/PLEURA: The pulmonary parenchyma appears within normal limits. No suspicious pulmonary nodules are visualized. No pleural effusion or focal pleural lesion. MEDIASTINUM: No pathologic mediastinal or hilar adenopathy. The thoracic aorta and pulmonary arteries are normal in caliber. The heart is normal in size. No pericardial effusion. Moderate calcified coronary atherosclerosis. The visualized thyroid and the esophagus are unremarkable. AXILLA/SOFT TISSUE: No supraclavicular or axillary adenopathy. Regional soft tissues are within normal limits. Abdomen and Pelvis: Liver and biliary system: No focal liver lesion. Gallbladder is absent. No biliary ductal dilatation. Spleen: Unremarkable Pancreas: Unremarkable Adrenal glands: Unremarkable Kidneys: Symmetric nephrograms. Redemonstrated bilateral nonobstructing renal calculi. No nephroureteral were nephrosis. Lymph nodes/retroperitoneum: No pathologically enlarged adenopathy. No suspicious retroperitoneal masses. Vessels: Mild aortobiiliac atherosclerotic disease. No evidence of aneurysm. Bowel/Peritoneal cavity: Stomach is normal. Bowel is normal in course and caliber. No free intra-abdominal air or fluid. Abdominal wall: Unremarkable Bladder: Bladder is partially decompressed Reproductive: Hysterectomy. No suspicious adnexal masses. Bones: Evaluation of the hips is degraded secondary to motion artifact. No acute osseous abnormality. Redemonstrated multilevel moderate to severe degenerative changes of the thoracic and lumbar spine. IMPRESSION: 1. No evidence of acute traumatic injury of the chest, abdomen, or pelvis. 2. No acute thoracic or lumbar spine fracture. Electronically signed by: Yovany Brewster DO (05/10/2021 11:02 AM) [id number] DICTATED AND SIGNED BY: YOVANY BREWSTER DO DATE: 05/10/21 1043 CC: TRAY GUTIÉRREZ MD; RYLIE CAMPBELL DO ~MTH0 0 Heart Score: C/O Chest Pain: No Risk Factors: Risk Factors: DM, Current or recent (<one month) smoker, HTN, HLP, family history of CAD, obesity. Risk Scores: Score 0 - 3: 2.5% MACE over next 6 weeks - Discharge Home Score 4 - 6: 20.3% MACE over next 6 weeks - Admit for Clinical Observation Score 7 - 10: 72.7% MACE over next 6 weeks - Early Invasive Strategies Course & Med Decision Making: Course & Med Decision Making Pertinent Labs and Imaging studies reviewed. (See chart for details) Concern for accidental, mechanical fall-unwitnessed. Patient with history of dementia and is at her normal baseline mental status. CT imaging with no acute traumatic injury. Patient's tetanus was updated. Occiput was easily aligned with Dermabond. Patient hemodynamic stable, moving all 4 extremities. Will discharge home with strict ED return precautions were given for repeat head injury, confusion or neurologic deficits. Encouraged urgent outpatient follow-up with PMD for routine care. Life-threatening processes were considered but are low suspicion at this time, given history, physical exam and ED workup. Pt was educated on all prescription medications and adverse effects. All patient's questions were answered and pt was stable at time of discharge. Life/limb-threatening differential includes but is not limited to, intracranial hemorrhage, diffuse axonal injury, spinal cord syndrome, unstable cervical fracture or SCIWORA, fractures or joint dislocations, neurovascular injuries, organ injury or laceration, pneumothorax, pneumoperitoneum, pericardial tamponade, unstable pelvic fracture, compartment syndrome, flail chest or respiratory distress, burn injury or asphyxiation I have spoken with the patient and/or caregivers. I explained the patient's condition, diagnoses and treatment plan based on the information available to me at this time. I have answered the patient and/or caregiver's questions and addressed any concerns. The patient and/or caregivers have a good understanding of patient's diagnosis, condition and treatment plan as can be expected at this point. Vital signs have been stable. Patient's condition is stable and appropriate for discharge from the emergency department. Patient will pursue further outpatient evaluation with primary care physician or other designated or consulting physician as outlined in the discharge instructions. The patient and/or caregivers are agreeable to this plan of care and follow-up instructions have been explained in detail. The patient and/or caregivers have received these instructions in written form and have expressed an understanding of the discharge instructions. The patient and/or caregivers are aware that any significant change of condition or worsening of symptoms should prompt immediate return to this or the closest emergency department or call to [phone] L[facility]ano Disclaimer: Bassem Disclaimer: This electronic medical record was generated, in whole or in part, using a voice recognition dictation system. Departure Departure: Impression: Primary Impression: Fall Additional Impressions: Occipital scalp laceration Need for Tdap vaccination Disposition: HOME / SELF CARE / HOMELESS Condition: STABLE Referrals: TRAY GUTIÉRREZ MD (PCP) Follow up with your pcp in 1-2 days or [facility] [phone] OR [facility]-Dr. De La Cruz [phone] Patient Instructions: Absorbable Suture Repair-Brief, Fall Prevention and Home Safety, VIS, Tetanus, Diphtheria (Td); Tetanus, Diphtheria, Pertussis (Tdap) - [facility] Additional Instructions: EMERGENCY DEPARTMENT GENERAL DISCHARGE INSTRUCTIONS Thank you for coming to [facility] (ED) today and trusting us with you care. We trust that you had a positivie experience in our Emergency Department. If you wish to speak to the department management, you may call the director at [phone]. YOUR FOLLOW UP INSTRUCTIONS ARE FOLLOWS: 1. Do you have a private Doctor? If you do not have a private doctor, please ask for a resource list of physicians or clinics that may be able to assist you with follow up care. 2. The Emergency Physician has interpreted your x-rays. The X-Ray specialist will also review them. If there is a change in the findings, you will be notified in 48 hours when at all possible. 3. A lab test or culture has been done, your results will be reviewed and you will be notified if you need a change in treatment. ADDITIONAL INSTRUCTIONS AND INFORMATION: 1. Your care today has been supervised by a physician who is specially trained in emergency care. Many problems require more than one evaluation for a complete diagnosis and treatment. We recommend that you schedule your follow up appointment as recommended to ensure complete treatment of you illness or injury. If you are unable to obtain follow up care and continue to have a problem, or if your condition worsens, we recommend that you return to the ED. 2. We are not able to safely determine your condition over the phone nor are we able to give sound medical advice over the phone. For these safety reasons, if you call for medical advice we will ask you to come to the ED for further evaluation. 3. If you have any questions regarding these discharge instructions please call the ED at [phone]. SAFETY INFORMATION: In the interest of safety, wellness, and injury prevention; we encourage you to wear your sealbelt, if you smoke; quite smoking, and we encourage family to use a protective helmet for bicycling and other sporting events that present an increased risk for head injury. IF YOUR SYMPTOMS WORSEN OR NEW SYMPTOMS DEVELOP, OR YOU HAVE CONCERNS ABOUT YOUR CONDITION; OR IF YOUR CONDITION WORSENS WHILE YOU ARE WAITING FOR YOUR FOLLOW UP APPOINTMENT; EITHER CONTACT YOUR PRIMARY CARE DOCTOR, THE PHYSICIAN WHOSE NAME AND NUMBER YOU WERE GIVEN, OR RETURN TO THE ED IMMEDIATELY. RYLIE CAMPBELL DO May 10, 2021 08:36
[2021-05-10] MEDS ORDERED: IOHEXOL 300 MG/ML 75 ML VIAL. IV ONE (08:45)
[2021-05-10 10:19] LABS: BASO # 0.1 x10^3/uL (0.0-0.2); BASO % 1 % (0-3); EOS # 0.2 x10^3/uL (0.0-0.7); EOS % 2 % (0-3); HEMATOCRIT 37.8 % (36.0-47.0); HEMOGLOBIN 12.3 g/dL (12.0-15.5); LYMPH # 3.4 x10^3/uL (1.0-4.8); LYMPH % 33 % (24-48); MEAN CORPUSCULAR HEMOGLOBIN 33 pg (25-35); MEAN CORPUSCULAR HGB CONC 33 g/dL (31-37); MEAN CORPUSCULAR VOLUME 100 fL (79-100); MONO % 9 % (0-9); NEUT # 5.6 x10^3uL (1.8-7.7); NEUT % 55 % (31-73); PLATELET COUNT 287 x10^3/uL (140-400); RED BLOOD COUNT 3.77 x10^6/uL (3.50-5.40); RED CELL DISTRIBUTION WIDTH 16.8 % (11.5-14.5); WHITE BLOOD COUNT 10.2 x10^3/uL (4.0-11.0)
[2021-05-10 10:22] LABS: CALCIUM 7.8 mg/dL (8.5-10.1); CREATININE 1.2 mg/dL (0.6-1.0); GFR 42.8; POTASSIUM 4.6 mmol/L (3.5-5.1)
[2021-05-10 10:28] LABS: ALBUMIN 2.2 g/dL (3.4-5.0); ALBUMIN/GLOBULIN RATIO 0.7 (1.0-1.7); TOTAL BILIRUBIN 0.2 mg/dL (0.2-1.0); TOTAL PROTEIN 5.2 g/dL (6.4-8.2)
--- NOTE | 2021-05-10 10:46 | RAD ---
CT HEAD AND C-SPINE WO Date: 05/10/2021 9:30 AM Clinical Indication: Reason: fall, dementia, uti / Spl. Instructions: / History: Comparison: 05/01/2021. Technique: 5 mm axial tomographic images were obtained of the head without contrast. These were view ed on brain and bone windows. Noncontrast CT of the cervical spine was performed. Sagittal and bloom l reformats were performed and evaluated. One or more of the following dose reduction techniques were utilized: Automated exposure control (AEC), Adjustment of mA and/or kV according to patient size, Us e of iterative reconstruction technique such as ASiR, CT scan done according to ALARA and image gentl y/image wisely HEAD FINDINGS: Motion artifact degrades image quality. Moderate generalized cerebral and cerebellar volume loss. Moderate nonspecific periventricular hypoat tenuation, most commonly seen with chronic small vessel ischemic disease. Moderate cerebral volume lo ss. Redemonstrated left frontal encephalomalacia. No intra- or extra-axial mass or fluid collection. No acute hemorrhage. The ventricles are normal in size, shape, and morphology. The bhandari-white matter junction is normal. The basilar cisterns are paten t. Similar complete opacification of the sphenoid sinuses with mild mucosal thickening of the ethmoid si nuses. Remaining paranasal sinuses are clear. The visualized portions of the orbits and globes are n ormal. The mastoid air cells are clear. No aggressive osseous lesion or fracture. CERVICAL SPINE FINDINGS: The cervical spine is normally aligned. No acute fracture. No aggressive lytic or blastic osseous les ions. Mild multilevel degenerative disc space height loss. Multilevel mild spinal canal stenosis secondary to disc protrusions and marginal osteophytes. Multilevel mild neuroforaminal narrowing secondary to u ncovertebral arthrosis. Multilevel mild facet arthrosis. The thyroid gland is atrophic. No cervical lymphadenopathy. Bilateral carotid atherosclerosis. The vi sualized aerodigestive tract is normal. The visualized portions of the lungs are clear. IMPRESSION: 1. No acute intracranial process. 2. No acute cervical spine fracture. Electronically signed by: John Brewster DO (05/10/2021 10:43 AM) [id number]
--- NOTE | 2021-05-10 11:04 | RAD ---
EXAM: CT Chest, Abdomen and Pelvis with IV contrast. Reformatted noncontrast images of the thoracic l umbar spine were also performed. CLINICAL HISTORY: Reason: fall, dementia, uti / Spl. Instructions: / History: COMPARISON: 05/01/2021 TECHNIQUE: Helical CT of the chest, abdomen and pelvis was performed following the administration of intravenous contrast. Axial, coronal and sagittal reformatted images were generated. ---PQRS compliance statement - One or more of the following individualized dose reduction techniques were utilized for this study: 1. Automated exposure control 2. Adjustment of the mA and/or kV according to patient size 3. Use of iterative reconstruction technique--- FINDINGS: CHEST: LUNGS/PLEURA: The pulmonary parenchyma appears within normal limits. No suspicious pulmonary nodules are visualized. No pleural effusion or focal pleural lesion. MEDIASTINUM: No pathologic mediastinal or hilar adenopathy. The thoracic aorta and pulmonary arteries are normal in caliber. The heart is normal in size. No pericardial effusion. Moderate calcified martin nary atherosclerosis. The visualized thyroid and the esophagus are unremarkable. AXILLA/SOFT TISSUE: No supraclavicular or axillary adenopathy. Regional soft tissues are within mati l limits. Abdomen and Pelvis: Liver and biliary system: No focal liver lesion. Gallbladder is absent. No biliary ductal dilatation . Spleen: Unremarkable Pancreas: Unremarkable Adrenal glands: Unremarkable Kidneys: Symmetric nephrograms. Redemonstrated bilateral nonobstructing renal calculi. No nephrourete ral were nephrosis. Lymph nodes/retroperitoneum: No pathologically enlarged adenopathy. No suspicious retroperitoneal mas ses. Vessels: Mild aortobiiliac atherosclerotic disease. No evidence of aneurysm. Bowel/Peritoneal cavity: Stomach is normal. Bowel is normal in course and caliber. No free intra-abdominal air or fluid. Abdominal wall: Unremarkable Bladder: Bladder is partially decompressed Reproductive: Hysterectomy. No suspicious adnexal masses. Bones: Evaluation of the hips is degraded secondary to motion artifact. No acute osseous abnormality. Redemonstrated multilevel moderate to severe degenerative changes of the thoracic and lumbar spine. IMPRESSION: 1. No evidence of acute traumatic injury of the chest, abdomen, or pelvis. 2. No acute thoracic or lumbar spine fracture. Electronically signed by: John Brewster DO (05/10/2021 11:02 AM) [id number]
[2021-05-10] MEDS ORDERED: IV NORMAL SALINE 500ML 500 ML IV ONE (11:45)
[2021-05-10 14:27] LABS: BACTERIA,URINE 0 /HPF (0-FEW); BILIRUBIN,URINE NEG (NEG); CLARITY,URINE CLEAR; COLOR,URINE YELLOW; GLUCOSE,URINE NEG (NEG); HYALINE CASTS, URINE OCC /HPF; NITRITE,URINE NEG (NEG); SQUAMOUS EPITHELIAL CELL,UR MANY /LPF; UROBILINOGEN,URINE 0.2 mg/dL (0.2 mg/dL)
[2021-05-10] MEDS ORDERED: NEOMY/BACITR/POLYMYXIN OINT PACKET. TP ONE (15:00)
[2021-05-10] MEDS ORDERED: DIPHTH,PERTUSS(ACELL),TET TOX 0.5 ML DISP.SYRIN. VAX IM ONE (15:00)
[2021-05-10 16:22] VITALS: BP 139/101
== END 2021-05-10 16:20 | disposition home or self-care (01) ==
LOC: ER 08:21
DX: S01.01XA Laceration without foreign body of scalp, initial encounter (principal); S50.312A Abrasion of left elbow, initial encounter; M19.90 Unspecified osteoarthritis, unspecified site; F03.90 Unspecified dementia, unspecified severity, without behavioral disturbance, psychotic disturbance, mood disturbance, and anxiety; F32.9 Major depressive disorder, single episode, unspecified; E11.9 Type 2 diabetes mellitus without complications; K21.9 Gastro-esophageal reflux disease without esophagitis; I10 Essential (primary) hypertension; W18.39XA Other fall on same level, initial encounter; Y93.89 Activity, other specified; Y92.89 Other specified places as the place of occurrence of the external cause; Y99.8 Other external cause status
CPT/HCPCS: 12001; 36415; 70450; 71260; 72125; 72128; 72131; 74177; 80053; 81001; 85025; 90471; 90715; 96360; 96361; 99285; J7040; Q9967

== ENCOUNTER 2021-05-23 21:32 | Inpatient (IN) | payer OTHER ==
[~2021-05-23] VITALS: Ht 160 cm; Wt 45.1 kg
--- NOTE | 2021-05-23 21:45 | PHYS DOC ---
Past History Past Medical History: Arthritis, Constipation, Dementia, Depression, Diabetes, GERD, Hypertension, Other Additional Past Medical Histor: chronic constipation Past Surgical History: No Surgical History Additional Past Surgical Histo: UNKNOWN Smoking: Non-smoker Alcohol Use: None Drug Use: None Adult General Chief Complaint Chief Complaint: COUGH HPI HPI Patient is an 86-year-old female with a history of end-stage dementia recently tested COVID-positive who [facility]. States that while at the [facility] they could not get her oxygen above 88 which is not normal for her. States that she is usually bedridden, and nonverbal at baseline. Denies any recent falls,, fevers, diarrhea, nausea, vomiting. Review of Systems Review of Systems Review of systems otherwise unremarkable except noted in HPI Allergies Allergies Allergies Coded Allergies Type Severity Reaction Last Updated Verified No Known Drug Allergies 06/24/13 No Physical Exam Physical Exam Constitutional: Well developed, cachectic, nonverbal, bedridden, non-toxic appearance. [] HENT: Normocephalic, atraumatic, bilateral tympanic membranes normal, oropharynx dry, no oral exudates, nose normal. [] Eyes: PERRLA, EOMI, conjunctiva normal, no discharge. [] Neck: Normal range of motion, no tenderness, supple, no stridor. [] Cardiovascular:Heart rate regular rhythm, no murmur [] Lungs & Thorax: Bilateral breath sounds clear to auscultation [] Abdomen: Bowel sounds normal, soft, no tenderness, no masses, no pulsatile masses. [] Skin: Warm, dry, no erythema, no rash. [] Back: No tenderness, no CVA tenderness. [] Extremities: No tenderness, no cyanosis, no clubbing, ROM intact, no edema. [] Neurologic: Nonverbal, noncommunicative, bedridden with only slight movements of the extremities which is normal for her per facility and EMS. EKG EKG [] Radiology/Procedures Radiology/Procedures [] Heart Score C/O Chest Pain: No Risk Factors: Risk Factors: DM, Current or recent (<one month) smoker, HTN, HLP, family history of CAD, obesity. Risk Scores: Risk Factors: DM, Current or recent (<one month) smoker, HTN, HLP, family history of CAD, obesity. Course & Med Decision Making Course & Med Decision Making Patient is an 86-year-old female with COVID who [facility] with a reported low oxygen Vital signs notable for tachycardia. Physical exam noted above. Patient placed on the monitor with IV access established. COVID positive. Laboratory analysis notable for hyponatremia, MICHAELA, hyperchloremia. Given 250 mill bolus of LR. Started on D5W at 100 mils per hour Given steroids. Started on Lovenox for DVT prophylaxis. Discussed patient with hospitalist who accepted for continued evaluation and treatment to [facility]. [] Dragon Disclaimer Dragon Disclaimer This electronic medical record was generated, in whole or in part, using a voice recognition dictation system. Departure Departure: Impression: Primary Impression: Dementia Additional Impressions: Lab test positive for detection of COVID-19 virus Hypernatremia MICHAELA (acute kidney injury) Increased anion gap metabolic acidosis Disposition: ADMITTED INPATIENT Condition: GUARDED Referrals: TRAY GUTIÉRREZ MD (PCP) Problem Qualifiers DIDIER BELTRAN MD May 23, 2021 21:45
[2021-05-23 22:49] LABS: BASO # 0.1 x10^3/uL (0.0-0.2); BASO % 1 % (0-3); EOS # 0.1 x10^3/uL (0.0-0.7); EOS % 0 % (0-3); HEMATOCRIT 44.6 % (36.0-47.0); HEMOGLOBIN 14.4 g/dL (12.0-15.5); LYMPH # 3.6 x10^3/uL (1.0-4.8); LYMPH % 29 % (24-48); MEAN CORPUSCULAR HEMOGLOBIN 32 pg (25-35); MEAN CORPUSCULAR HGB CONC 32 g/dL (31-37); MEAN CORPUSCULAR VOLUME 100 fL (79-100); MONO # 2.1 x10^3/uL (0.0-1.1); MONO % 17 % (0-9); NEUT # 6.5 x10^3uL (1.8-7.7); NEUT % 53 % (31-73); PLATELET COUNT 334 x10^3/uL (140-400); RED BLOOD COUNT 4.44 x10^6/uL (3.50-5.40); RED CELL DISTRIBUTION WIDTH 17.3 % (11.5-14.5); WHITE BLOOD COUNT 12.3 x10^3/uL (4.0-11.0)
[2021-05-23 22:56] LABS: ALBUMIN 2.6 g/dL (3.4-5.0); ALBUMIN/GLOBULIN RATIO 0.7 (1.0-1.7); C REACTIVE PROTEIN 67.3 mg/L (0-3.3); CALCIUM 8.4 mg/dL (8.5-10.1); CREATININE 3.5 mg/dL (0.6-1.0); GFR 12.4; POTASSIUM 4.8 mmol/L (3.5-5.1); TOTAL BILIRUBIN 0.6 mg/dL (0.2-1.0); TOTAL PROTEIN 6.5 g/dL (6.4-8.2)
--- NOTE | 2021-05-23 23:15 | RAD ---
EXAM: XR CHEST 1V 05/23/2021 10:11 PM CLINICAL INDICATION: Shortness of breath COMPARISON: Chest radiograph 04/15/2021 TECHNIQUE: AP view of the chest FINDINGS: The heart and mediastinum are normal. Lungs are well-expanded and clear. No consolidation , pleural effusion, or pneumothorax. Pulmonary vascularity is normal. The thoracic skeleton is inta ct. IMPRESSION: No acute cardiopulmonary abnormality. Electronically signed by: Liya Holly MD (05/23/2021 11:13 PM) [id number]
[2021-05-23] MEDS ORDERED: MORPHINE SULFATE 2 MG/ML DISP.SYRIN. IV ONE (23:30)
[2021-05-23] MEDS ORDERED: IV RINGERS SOLUTION,LACTATED 1,000 ML IV ONE (23:30)
[2021-05-23] MEDS ORDERED: IV 1/2 NORMAL SALINE 1,000 ML IV ONE (23:30)
[2021-05-23] MEDS ORDERED: ONDANSETRON PF 4 MG/2 ML VIAL. IVP ONE (23:30)
[2021-05-23] MEDS ORDERED: MORPHINE SULFATE 2 MG/ML DISP.SYRIN. IVP PRN (23:45)
[2021-05-23] MEDS ORDERED: ONDANSETRON PF 4 MG/2 ML VIAL. IVP PRN (23:45)
--- NOTE | 2021-05-24 00:31 | RAD ---
CT head without contrast dated 05/24/2021 12:27 AM Comparison: 05/10/2021 CLINICAL INDICATION: Altered mental status TECHNIQUE: Contiguous axial imaging of the head was performed from skull base to vertex. One or more of the following individualized dose reduction techniques were utilized for this examinat ion: 1. Automated exposure control 2. Adjustment of the mA and/or kV according to patient size 3. Use of iterative reconstruction technique. FINDINGS: Ventricles and sulci are moderately prominent for age. No midline shift or mass effect. Mild to moder ate patchy low density in the deep/subcortical periventricular white matter. There is a remote appear ing infarct in the parasagittal left frontal lobe, unchanged from prior study. No hemorrhage or extra -axial collection. Posterior fossa and brainstem unremarkable Mild mucosal thickening of the ethmoid air cells with subtotal opacification of the bilateral sphenoi d sinus. Mastoid air cells are clear. No apparent calvarial abnormality. IMPRESSION: 1. No evidence of acute intracranial hemorrhage or mass. 2. Moderate chronic small vessel ischemic changes and atrophy. 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 3. Mild to moderate sinus disease. Electronically signed by: Maurizio Whitaker MD (05/24/2021 12:29 AM) [facility]
[2021-05-24 00:53] LABS: COLOR,URINE AMBER
[2021-05-24 00:54] LABS: BACTERIA,URINE MOD /HPF (0-FEW); BILIRUBIN,URINE MOD (NEG); CLARITY,URINE CLEAR; GLUCOSE,URINE NEG (NEG); NITRITE,URINE NEG (NEG); RBC,URINE 0 /HPF (0-2); UROBILINOGEN,URINE 0.2 mg/dL (0.2 mg/dL)
[2021-05-24 00:55] LABS: HYALINE CASTS, URINE MANY /HPF; SQUAMOUS EPITHELIAL CELL,UR MOD /LPF
[2021-05-24] MEDS ORDERED: cefTRIAXone SODIUM 1 GM VIAL ONE (01:23)
[2021-05-24] MEDS ORDERED: IV NORMAL SALINE 50ML 50 ML ONE (01:23)
[2021-05-24] MEDS ORDERED: ENOXAPARIN 40 MG/0.4 ML SYRINGE. SQ ONE (01:45)
[2021-05-24 02:00] VITALS: BP 84/52
[2021-05-24] MEDS ORDERED: DEXAMETHASONE SOD PHOS 4 MG/ML VIAL. IVP ONE (02:00)
[2021-05-24] MEDS ORDERED: POTASSIUM CL 20MEQ IN D5W 1,000 ML IV ONE ×2 (02:00)
[2021-05-24] MEDS ORDERED: IV DEXTROSE 5% 1,000 ML IV SCH ×2 (02:30→08:30)
[2021-05-24] MEDS ORDERED: HEPARIN for SUB-Q USE 5,000 UNIT/ML VIAL. SQ ONE (02:30)
[2021-05-24 02:54] LABS: CALCIUM 7.9 mg/dL (8.5-10.1); CREATININE 1.3 mg/dL (0.6-1.0); POTASSIUM 4.4 mmol/L (3.5-5.1)
--- NOTE | 2021-05-24 03:38 | NUR ---
PT ADMITTED TO [facility] ACCOMPANIED BY ER STAFF. VS OBTAINED. PT IS RESTING COMFORTABLY W/ BED ALARM IN PLACE. WILL CONTINUE TO MONITOR.
[2021-05-24 05:00] VITALS: BP 118/68
[2021-05-24 05:11] LABS: CALCIUM 8.1 mg/dL (8.5-10.1); CREATININE 3.6 mg/dL (0.6-1.0); POTASSIUM 4.7 mmol/L (3.5-5.1)
--- NOTE | 2021-05-24 06:42 | EKG ---
[address] [address] Test Date: 2021-05-24 Test Time: 00:39:34 Pat Name: SKINNY JO Department: Room: 117 A Gender: F Behavior Analyst: : 1935 Requested By: DIDIER BELTRAN Order Number: [id number] Reading MD: Omero Montoya MD Measurements Intervals [place] Rate: 112 P: 56 VT: 150 QRS: 25 QRSD: 68 T: 64 QT: 372 QTc: 510 Interpretive Statements SINUS TACHYCARDIA NON-SPECIFIC ST/T CHANGES Electronically Signed On 05-24-2021 20:39:56 FUEL TESTING TECHNICIAN by Omero Montoya MD
--- NOTE | 2021-05-24 08:32 | HP ---
DATE OF SERVICE: 05/24/2021 ADMIT DATE: 05/23/2021 ATTENDING PHYSICIAN: Dr. Arevalo. CHIEF COMPLAINT: COVID positive status and mild hypoxemia. HISTORY OF PRESENT ILLNESS: The patient is an 86-year-old female from a local snf. She has profound dementia. She was tested positive for COVID. She had decreased saturation. She was admitted through the ED. The snf did not know to handle her. She cannot give much history. Family is out of town. PAST MEDICAL HISTORY: Significant for end-stage dementia, chronic constipation, degenerative arthritis, type 2 diabetes, gastroesophageal reflux disease, essential hypertension. PAST SURGICAL HISTORY: Unknown. FAMILY HISTORY: Unobtainable. REVIEW OF SYSTEMS: Unobtainable. ALLERGIES: She has no recorded drug allergies. CURRENT MEDICATIONS: Reviewed from the snf. They include Tylenol, albuterol, amlodipine, Lipitor, Coreg, cephalexin, chlorhexidine, clonazepam, cyclosporine, fluticasone, hydrocodone, guaifenesin, Synthroid, Xalatan eyedrops, magnesium hydroxide, Myrbetriq, Remeron, olanzapine, omega 3 fish oil, ondansetron, Protonix, Requip, prednisone, Bactrim, trazodone, and vitamin. PHYSICAL EXAMINATION: GENERAL: When I saw her, this is an elderly, confused white female. She is nonverbal. VITAL SIGNS: Her initial vital signs showed a blood pressure of 87/46, pulse was 112 and regular. She was afebrile. Oxygen saturation was 95% on room air. HEENT: Head is without trauma. Pupils are reactive. Sclerae nonicteric. Oropharynx clear. Mucous membranes dry. NECK: Supple, no bruits. LUNGS: Coarse rhonchi bilaterally with inability to clear secretions. She has congestion in her airways. CARDIOVASCULAR: Showed distant heart tones, tachycardic rhythm. No gallops. ABDOMEN: Soft. EXTREMITIES: Show no cyanosis or edema. NEUROLOGIC: Obtunded and nonverbal at this time. She is completely bedridden. PERTINENT LABORATORY STUDIES: The hemoglobin is 14.4 g/dL with a white count of 12,300. The serum sodium level was 164 suggesting free water deficit. This will be adjusted accordingly. Creatinine is 1.6 mg%. ASSESSMENT: 1. An 86-year-old female from the snf who tested positive for coronavirus. She had mild hypoxemia, although this morning her room air sats are 95%. 2. Dehydration with free water deficit. Her sodium is 164 due to her saline infusion. This will be corrected. 3. Chronic kidney disease stage V. I had a creatinine this time at 3.6 mg/dL. 4. Essential hypertension, currently hypotensive. 5. Polypharmacy. 6. Generalized debilitation. PLAN: 1. Admit to the inpatient unit. 2. Gentle IV hydration. 3. Serial chemistries. 4. Home meds held. 5. I shall try to ascertain her code status from her family. GABE/CHITO DR: GABE/blaine TID: [id number]
[2021-05-24 11:20] VITALS: BP 107/78
[2021-05-24] MEDS ORDERED: MORPHINE SULFATE 4 MG/ML DISP.SYRIN. IM ONE (12:30)
[2021-05-24 15:43] LABS: BASO % 0 % (0-3); EOS % 0 % (0-3); HEMATOCRIT 42.5 % (36.0-47.0); HEMOGLOBIN 13.8 g/dL (12.0-15.5); LYMPH # 1.2 x10^3/uL (1.0-4.8); LYMPH % 14 % (24-48); MEAN CORPUSCULAR HEMOGLOBIN 33 pg (25-35); MEAN CORPUSCULAR HGB CONC 33 g/dL (31-37); MEAN CORPUSCULAR VOLUME 101 fL (79-100); MONO # 0.4 x10^3/uL (0.0-1.1); MONO % 5 % (0-9); NEUT # 6.9 x10^3uL (1.8-7.7); NEUT % 81 % (31-73); PLATELET COUNT 310 x10^3/uL (140-400); RED CELL DISTRIBUTION WIDTH 17.4 % (11.5-14.5); WHITE BLOOD COUNT 8.6 x10^3/uL (4.0-11.0)
[2021-05-24 16:02] LABS: CREATININE 4.1 mg/dL (0.6-1.0); GFR 10.4; POTASSIUM 4.9 mmol/L (3.5-5.1)
[2021-05-24] MEDS: IV DEXTROSE 5% 1,000 ML IV SCH (16:15)
--- NOTE | 2021-05-24 16:29 | NUR ---
Nursing note : During this shift this nurses had issues getting blood return form pt IV line doctor notified with orders for PICC insertion received, DPOA consent received. PICC team called and arrived to assess pt for PICC or midline placement. Per PICC team No vessel was found suitable for PICC or Midline placement. PICC team was able to achieve a 22 Gauge 1 Inch in length IV at 1420. doctor notified.
[2021-05-24 16:39] VITALS: BP 122/77
[2021-05-24 19:44] VITALS: BP 131/67
[2021-05-24 23:37] VITALS: BP 110/70
[2021-05-25] MEDS: IV DEXTROSE 5% 1,000 ML IV SCH ×2 (05:34→20:29)
[2021-05-25 06:18] VITALS: BP 104/58
[2021-05-25 07:42] LABS: CALCIUM 7.4 mg/dL (8.5-10.1); CREATININE 4.7 mg/dL (0.6-1.0); GFR 8.9; POTASSIUM 4.6 mmol/L (3.5-5.1)
--- NOTE | 2021-05-25 11:00 | NUR ---
pts family updated and wants to start hospice on pt. andreia called and will come to see pt at 530 pm tonight with son at bedside to do assessment.
[2021-05-25 11:15] VITALS: BP 109/72
--- NOTE | 2021-05-25 12:30 | PN ---
DATE: 05/25/2021 ATTENDING PHYSICIAN: Dr. Mosquera. SUBJECTIVE: Nonresponsive. OBJECTIVE FINDINGS: VITAL SIGNS: Blood pressure this morning is 109/72. She is afebrile. Oxygen saturation 100% on 4 liters nasal cannula. HEENT: Head is without trauma. Pupils are reactive. Sclerae nonicteric. Oropharynx clear. NECK: Supple. No bruits. LUNGS: Shallow respirations. Increased rhonchi. She is unable to clear her secretions. CARDIOVASCULAR: Showed distant heart tones. No gallops. ABDOMEN: Soft. EXTREMITIES: Without edema. NEUROLOGIC FINDINGS: Obtunded and comatose. LABORATORY DATA: Sodium had gone up to 164 mEq, is down to 151, it was 159, last night 151 mEq per liter. Creatinine has worsened to 4.7 mg percent with a BUN of 49. ASSESSMENT: 1. An 86-year-old female from the group home with coronavirus, mild hypoxemia. 2. Dehydration with free water deficit, improving. 3. Hypernatremia, being corrected. 4. Chronic kidney disease. She has acute renal failure on top of chronic kidney disease. 5. Essential hypertension. 6. Polypharmacy. 7. Generalized debilitation. PLAN: 1. Continue IV hydration. 2. Serial chemistries. 3. I do believe the patient is actively dying. Her renal function will worsen before it gets better. 4. Prognosis is terminal. I will try to get the family to consider hospice. GABE/ELIAN ANDERSON: Phong TID: [id number]
[2021-05-25] MEDS: MORPHINE SULFATE 2 MG/ML DISP.SYRIN. IV PRN (16:19)
[2021-05-25 16:24] VITALS: BP 93/58
--- NOTE | 2021-05-25 16:47 | NUR ---
pt has remained in bed all day, pt does not respond to verbal or tactile stimuli. pt will not make eye contact when being spoken to and has a blank star. pt will not eat or drink at this time and has not talked at all today. pt is incontinent, with a gil in place and minimal urine production. urine has brown tint.
[2021-05-25 19:42] VITALS: BP 104/68
[2021-05-25 23:47] VITALS: BP 125/75
[2021-05-26 05:56] VITALS: BP 96/68
[2021-05-26 06:59] LABS: CREATININE 4.8 mg/dL (0.6-1.0); GFR 8.6
[2021-05-26] MEDS: IV DEXTROSE 5% 1,000 ML IV SCH (08:06)
--- NOTE | 2021-05-26 09:09 | NUR ---
SPOKE WITH [facility]. [facility] STATES THAT PT DOES NOT QUALIFY FOR INPT HOSPICE BECAUSE SHE IS NOT HAVING ANY AIR HUNGER OR OTHER SYMPTOMS THAT COULDN'T BE MANAGED AT HOME OR IN A FACILITY. [facility] STATES THEY WOULD BE WILLING TO ACCEPT PT TO HOME HOSPICE IF THE FAMILY WOULD LIKE TO TAKE THE PT HOME. Addendum: 05/26/21 at 1634 by RUTH MELGOZA RN DR. SANCHEZ GAVE VERBAL ORDER TO D/C IV FLUIDS PT IS ON COMFORT CARE.
[2021-05-26 11:06] VITALS: BP 120/56
[2021-05-26 15:00] VITALS: BP 110/66
[2021-05-26 19:38] VITALS: BP 95/59
[2021-05-26 23:00] VITALS: BP 110/72
--- NOTE | 2021-05-26 23:17 | PN ---
DATE: 05/26/2021 ATTENDING PHYSICIAN: Dr. Mosquera. SUBJECTIVE: The patient is unresponsive. OBJECTIVE FINDINGS: VITAL SIGNS: Blood pressure this morning is 120/56, her pulse is 88 and regular. She is afebrile. Oxygen saturation 97% on room air. HEENT: Head is without trauma. Pupils are reactive. Sclerae nonicteric. Oropharynx clear. Dry mucous membrane. NECK: Supple. No stridor. LUNGS: Very shallow respirations. She also has the rattling sound of secretions as unable to be cleared up. CARDIOVASCULAR: Regular heart tones. ABDOMEN: Soft. EXTREMITIES: Without edema. NEUROLOGIC: Encephalopathic superimposed on history of nonverbal baseline. LABORATORY DATA: Pertinent laboratory studies, her creatinine today is 4.8 mg/dL, BUN 56, potassium 4.0 mEq. ASSESSMENT: 1. An 86-year-old female with metabolic encephalopathy. 2. Coronavirus with hypoxemia, very mild. 3. Dehydration with free water deficit. 4. Acute renal failure superimposed on chronic kidney disease. 5. Essential hypertension. 6. Generalized debilitation. PLAN: 1. Gentle IV hydration. 2. She is a DNR now. Hospice has seen her, but she is not a candidate for inpatient hospice. 3. Comfort measures. 4. Family notified. I do not expect her to survive this hospitalization. ANDREAS DR: Phong TID: [id number]
[2021-05-27] MEDS: MORPHINE SULFATE 2 MG/ML DISP.SYRIN. IV PRN ×3 (04:59→14:22)
[2021-05-27 05:26] VITALS: BP 115/70
[2021-05-27 08:07] VITALS: BP 96/64
[2021-05-27 11:00] VITALS: BP 103/57
--- NOTE | 2021-05-27 13:00 | PN ---
DATE: 05/27/2021 ATTENDING PHYSICIAN: Dr. Arevalo. SUBJECTIVE: Poorly responsive. She is bedridden. OBJECTIVE FINDINGS: VITAL SIGNS: Blood pressure this morning is 115/70, pulse is 106 and regular, temperature 98.1 degrees Fahrenheit, oxygen saturation 97% on room air. HEENT: Head is without trauma. Pupils are reactive. Oropharynx is clear. Dry mucous membrane. NECK: Supple. No stridor. LUNGS: Coarse rhonchi bilaterally with gurgling in her airways, inability to clear her secretions. CARDIOVASCULAR: Showed regular heart tones. No gallop. ABDOMEN: Soft. EXTREMITIES: Without edema. NEUROLOGIC FINDINGS: Bedridden and encephalopathic. ASSESSMENT: 1. An 86-year-old female with metabolic encephalopathy. 2. Coronavirus infection with hypoxemia, very mild. She is oxygenating well on room air. 3. Dehydration with free water deficit. 4. Acute renal failure. Creatinine yesterday was 4.8 mg/dL. 5. Essential hypertension. 6. Generalized debilitation. PLAN: 1. Comfort measures. She is now a DNR. 2. Recs per hospice. 3. She did not qualify to go to acute hospice here. The next option is back to the [facility] with hospice care. I will try to contact the family. GABE/ANDRES DR: GABE/blaine TID: [id number]
[2021-05-27 15:00] VITALS: BP 121/69
--- NOTE | 2021-05-27 15:26 | NUR ---
PT GIVEN MORPHINE TWICE THIS SHIFT SO FAR. PT ACKNOWLEDGES STAFF PRESENCE UPON ENTERING THE ROOM. PT JUST MAKES AN "AHHH" NOISE. PT LEGS CONTRACTURED EVEN WHEN REPOSITIONED. PT NON-VERBAL. DR. SANCHEZ SPOKE WITH FAMILY THIS MORNING.
[2021-05-27 15:52] LABS: CALCIUM 7.6 mg/dL (8.5-10.1); CREATININE 3.6 mg/dL (0.6-1.0); POTASSIUM 4.3 mmol/L (3.5-5.1)
[2021-05-27 19:21] VITALS: BP 126/85
[2021-05-28 05:00] VITALS: BP 129/77
[2021-05-28] MEDS: MORPHINE SULFATE 2 MG/ML DISP.SYRIN. IV PRN ×5 (06:35→22:50)
--- NOTE | 2021-05-28 10:08 | PN ---
DATE: 05/28/2021 ATTENDING PHYSICIAN: Dr. Mosquera and Dr. Arevalo SUBJECTIVE: Poorly responsive. She remains bedridden. OBJECTIVE FINDINGS: VITAL SIGNS: Blood pressure this morning is 129/77. She is afebrile. Oxygen saturation 96% on 4 liters by nasal cannula. HEENT: Head is without trauma. Pupils are reactive. Sclerae nonicteric. Oropharynx clear. NECK: Supple, no bruits. LUNGS: Shallow respirations. CARDIOVASCULAR: Regular heart tones. ABDOMEN: Soft. EXTREMITIES: Without edema. NEUROLOGIC: Profoundly demented. LABORATORY DATA: Reviewed. Her creatinine actually came down to 3.6 mg/dL, BUN 64. Electrolytes improved. Sodium is down to 147 mEq per liter. ASSESSMENT: 1. An 86-year-old female with metabolic encephalopathy, slightly improved. 2. Coronavirus infection, hypoxemia. Still requiring supplemental oxygen. 3. Dehydration with free water deficit. 4. Acute renal failure. 5. Essential hypertension. 6. Generalized debilitation. PLAN: 1. Comfort measures. She is now a DNR. 2. Inpatient hospice was declined. Therefore, we will try to find a place for [facility] that she can go with hospice care. Unfortunately, the limiting factor and the deal breaker is that she has COVID positive status. STORM DR: Phong TID: [id number]
[2021-05-28 12:13] VITALS: BP 114/62
[2021-05-28 15:00] VITALS: BP 120/62
--- NOTE | 2021-05-28 16:44 | NUR ---
PT GIVEN PAIN MEDS A FEW TIMES THIS SHIFT. PT RESTED MOST OF THE DAY, BUT WAS AWAKE AND MOANING A FEW TIMES. PT AWARE OF STAFF PRESENCE. PT SEEMED TO BE MUMBLING SOMETHING, BUT STAFF UNABLE TO UNDERSTAND WHAT SHE IS SAYING.
[2021-05-28 19:00] VITALS: BP 120/81
[2021-05-28 23:04] VITALS: BP 142/74
[2021-05-29] MEDS: MORPHINE SULFATE 2 MG/ML DISP.SYRIN. IV PRN ×2 (04:50→10:24)
[2021-05-29 05:11] VITALS: BP 115/56
--- NOTE | 2021-05-29 11:28 | PN ---
DATE: 05/29/2021 ATTENDING PHYSICIAN: Dr. Arevalo. SUBJECTIVE: Unresponsive. OBJECTIVE FINDINGS: VITAL SIGNS: Blood pressure this morning is 115/56, pulse is 99 and regular. She is afebrile. Oxygen saturation 99% on 4 liters. HEENT: Head is without trauma. Pupils are reactive. Sclerae nonicteric. Oropharynx clear. Dry mucous membrane. NECK: Minimal rhonchi noted. LUNGS: Coarse rhonchi bilaterally with gurgling of inability to cough up secretions. CARDIOVASCULAR: Showed distant heart tones. ABDOMEN: Soft. EXTREMITIES: Without edema. NEUROLOGIC: Encephalopathic and comatose. ASSESSMENT: 1. An 86-year-old female with metabolic encephalopathy due to multiple medical issues. 2. Acute renal failure. 3. Coronavirus infection with hypoxemia. 4. Dehydration. 5. Essential hypertension. 6. Generalized debilitation. PLAN: 1. Comfort measures. 2. We are working on placement at her local senior living with hospice care. Family notified. GABE/ESTELITA/KAYLIE DR: GABE/blaine TID: [id number]
[2021-05-29 12:37] VITALS: BP 115/57
--- NOTE | 2021-05-29 14:58 | NUR ---
PATIENT IS DISCHARGED TO [facility] END [facility] LIFE CARE/HOSPICE. REPORT GIVEN TO STAFF NURSE. PATIENT LEFT VIA EMS.
--- NOTE | 2021-05-30 04:23 | DS ---
DATE OF DISCHARGE: 05/29/2021 ATTENDING PHYSICIAN: Dr. Morales. FINAL DISCHARGE DIAGNOSES: 1. Acute COVID pneumonia with hypoxemia. 2. Acute on chronic renal failure. 3. Dehydration. 4. Metabolic encephalopathy. 5. Essential hypertension. 6. Generalized debilitation. 7. 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 HISTORY AND PHYSICAL: The patient is an 86-year-old female, local resident of a senior living. She was admitted to the ED with increasing hypoxemia and obtundation. She had metabolic encephalopathy. PHYSICAL EXAMINATION: Please see the dictated note. PERTINENT LABORATORY AND X-RAY STUDIES: Her admission hemoglobin was 14.4 g/dL with a white count of 12,300. Chemistry panel showed initial sodium 164 mEq; with gentle hydration, it came down to 151 and 147 mEq per liter. Chloride concomitantly came down from 125 to 113 mEq per liter. Potassium is maintained at 4.2 mEq. Creatinine was 3.6, 4.1, 4.7, 4.8 and eventually 3.6 mg/dL. BUN was 64. Cultures of urine were negative for any growth. COURSE IN HOSPITAL: The patient was admitted. She had a free water deficit. She was started on gentle IV hydration. Serial chemistries, supplemental oxygen and empiric antibiotics. She was stable from a hemodynamic standpoint. She never did arouse to a point where she was able to communicate. Given the renal failure and worsening symptoms, the family elected to go with hospice therapy. Arrangements were then made for patient to go with ____ Hospice service to the senior living for end of life care. Her discharge medications will include the following: We had stopped her senior living meds. I did write a script for Roxanol liquid 20 mg of morphine per 1 mL, 10 mg p.o. q.4 hours p.r.n. pain. Her prognosis is terminal. She was discharged then from our hospital in stable condition for end of life care with ____ Hospice at the local senior living. Total discharge time spent 41 minutes. GABE/TAD/PRITI DR: GABE/blaine TID: [id number] CC: EVELIA MORALES MD
== END 2021-05-29 15:00 | disposition hospice, inpatient (51) | DRG 177 ==
LOC: ER 21:32 → ER HOLD 23:44 → 1 SOUTH 05-24 02:05
PROVIDERS: ADMIT Internal Medicine; ATTEND Internal Medicine
DX: U07.1 COVID-19 (principal); J12.82 Pneumonia due to coronavirus disease 2019; G93.41 Metabolic encephalopathy; N17.0 Acute kidney failure with tubular necrosis; N18.5 Chronic kidney disease, stage 5; I12.0 Hypertensive chronic kidney disease with stage 5 chronic kidney disease or end stage renal disease; E87.0 Hyperosmolality and hypernatremia; Z66 Do not resuscitate; K59.09 Other constipation; E11.22 Type 2 diabetes mellitus with diabetic chronic kidney disease; F32.A Depression, unspecified; F03.90 Unspecified dementia, unspecified severity, without behavioral disturbance, psychotic disturbance, mood disturbance, and anxiety; E86.0 Dehydration; I95.9 Hypotension, unspecified; R53.81 Other malaise; K21.9 Gastro-esophageal reflux disease without esophagitis; M19.90 Unspecified osteoarthritis, unspecified site; Z74.01 Bed confinement status; I69.320 Aphasia following cerebral infarction; Z51.5 Encounter for palliative care
CPT/HCPCS: 36415; 51702; 70450; 71045; 80048; 80053; 81001; 83605; 83935; 84300; 84484; 85025; 86140; 87086; 93005; 96361; 96365; 96375; J0696; J1100; J1644; J2060; J2270; J2405; J7120; 99285-25